=== PATIENT | female | born 1930 | race Caucasian/White ===

== ENCOUNTER → 2016-07-07 | Outpatient (CLI) | payer MEDICARE, BC | END | disposition home or self-care (01) | LOC: LABWHC1 12:11 | PROVIDERS: ATTEND Family Medicine | DX: E03.9 Hypothyroidism, unspecified (principal); E55.9 Vitamin D deficiency, unspecified | CPT/HCPCS: 36415; 82306; 84439; 84443 ==

== ENCOUNTER → 2016-07-07 | Outpatient (CLI) | payer MEDICARE, BC ==
[2016-07-07 11:37] LABS: EKG EKG PERFORMED
[2016-07-07 12:34] LABS: Appearance,Urine Clear (Clear); Bilirubin,Urine Negative (Negative); Glucose,Urine (UA) Negative (Negative); Ketones,Urine Negative (Negative); Leukocyte Esterase,Urine Negative (Negative); Nitrite,Urine Negative (Negative); PH, Urine 6.5 (5.0-8.0); Protein,Urine Negative (Negative); UA Billing (MACRO vs. MICRO) CHEM; Urobilinogen,Urine <2.0 mg/dL (<2.0)
[2016-07-07 12:39] LABS: Aty Lym Flag Slight; CH 33.5; CHCM 34.9; HCT 39.1 % (34.0-46.0); HDW 2.54; HGB 13.4 gm/dL (11.4-16.0); MCHC 34.3 g/dL (31.0-37.0); MCV 96.2 fL (80.0-100.0); Mean Platelet Volume 7.1; RBC 4.06 m/uL (3.80-5.40); RDW 12.4 % (11.5-15.5); WBC 3.6 k/uL (3.8-10.6); WBC (Perox) 3.91
[2016-07-07 12:46] LABS: Partial Thromboplastin Time 24.8 sec (22.0-30.0); Prothrombin Time 10.5 sec (9.0-12.0)
[2016-07-07 13:08] LABS: ALT 23 U/L (9-52); AST 21 U/L (14-36); Alkaline Phosphatase 95 U/L (38-126); Anion Gap 8 mmol/L; Blood Urea Nitrogen 17 mg/dL (7-17); Calcium 9.6 mg/dL (8.4-10.2); Carbon Dioxide 25 mmol/L (22-30); Chloride 98 mmol/L (98-107); Glucose 93 mg/dL (74-99); Non-African American GFR(MDRD) >60 (>60 ml/min/1.73 sqM); Potassium 4.9 mmol/L (3.5-5.1); Sodium 131 mmol/L (137-145); Total Protein 6.5 g/dL (6.3-8.2)
[2016-07-07 13:35] LABS: Add Differential Manual Differential
[2016-07-07 13:38] LABS: Large Platelets Present; Manual Review Performed; Nucleated Red Blood Cells 0 /100 WBC (0-0); Total Cells Counted 100; Toxic Vacuolation Present
== END ==
LOC: LABPAT 11:04
PROVIDERS: ATTEND Orthopaedic Surgery
DX: Z01.810 Encounter for preprocedural cardiovascular examination (principal); Z01.812 Encounter for preprocedural laboratory examination; E03.9 Hypothyroidism, unspecified; E55.9 Vitamin D deficiency, unspecified
CPT/HCPCS: 36415; 80053; 81003; 82306; 84439; 84443; 85025; 85610; 85730; 87070; 93005

== ENCOUNTER 2016-07-15 08:29 | Inpatient (IN) | payer MEDICARE, BC ==
[2016-07-09 10:57] VITALS: BMI 26.5
[~2016-07-15 08:29] MED LIST: ACETAMINOPHEN TAB 500 MG TAB PO ONE; DEXAMETHASONE SOD PHOSPHATE 10 MG/ML 1 ML VIAL IV ONE; FAMOTIDINE 20 MG/2 ML VIAL IV PRN; HYDROmorphone 1 MG/ML 1 ML SYRINGE IVP PRN; LIDOCAINE 1% 20 ML VIAL (10MG/ML) FOR IV START INTRADERMA PRN; MELOXICAM 7.5 MG TAB PO ONE; MIDAZOLAM 2 MG/2 ML VIAL IV PRN; ONDANSETRON 4 MG/2 ML VIAL IVP ONE; TRANEXAMIC ACID 1,000 MG in SODIUM CHLORIDE 0.9% 100 ML IVPB ONE; ceFAZolin 2 GM in SODIUM CHLORIDE 0.9% 100 ML IVPB ONE
[2016-07-15] MEDS: LACTATED RINGERS 1,000 ML IV SCH (12:25)
[2016-07-15] MEDS ORDERED: ROPIVACAINE 1,100 MG, SODIUM CHLORIDE 0.9% 330 ML MISCELLANE PRN ×2 (12:39)
--- NOTE | 2016-07-15 12:41 | P.ONQ ---
Anesthesiology Proc Note - PNB - Peripheral Nerve Block Performed Right Adductor Canal Time Out Performed: Yes Procedure Start Time: 12:40 Procedure Stop Time: 12:45 Indication: Acute Post-Operative Pain, Analgesia Sedation Type: Sedate with meaningful contact maintained Preparation: Sterile Prep Position: Supine Catheter: Indwelling Needle Types: On-Q, Tojaneen Needle Size: 100mm (4") Needle Gauge: 18 Technique: Ultrasound Injectate: 0.5% Ropivacaine (see comment for volume) Blood Aspirated: No Pain Paresthesia on Injection Noted: No Resistance on Injection: Normal Events: Uneventful and Well Tolerated
[2016-07-15] MEDS ORDERED: LIDOCAINE 1% INJ 10MG/ML (20 ML MDV) ONE (15:15)
[2016-07-15] MEDS ORDERED: SODIUM CHLORIDE 0.9% 100 ML BAG ONE (15:15)
[2016-07-15] MEDS ORDERED: MIDAZOLAM 2 MG/2 ML VIAL ONE (15:15)
[2016-07-15] MEDS ORDERED: ePHEDrine 50 MG/ML 1 ML AMP ONE (15:15)
[2016-07-15] MEDS ORDERED: TRANEXAMIC ACID 1,000 MG/10 ML VIAL ONE (15:15)
[2016-07-15] MEDS ORDERED: PROPOFOL 10 MG/ML 20 ML VIAL IV ONE (15:15)
[2016-07-15] MEDS ORDERED: ceFAZolin 3,000 MG in SODIUM CHLORIDE 0.9% IRRIGATIO 3,000 ML IRRIGATION ONE (15:20)
[2016-07-15] MEDS: ROPIVACAINE 246.25 MG, EPINEPHrine 0.5 MG, KETOROLAC 30 MG, cloNIDine HCL/PF 80 MCG, WA... MISCELLANE ONE ×10 (15:52→16:01)
--- NOTE | 2016-07-15 16:34 | P.OP ---
Date of Procedure: 07/15/16 Preoperative Diagnosis: Severe osteoarthritis right knee Postoperative Diagnosis: Severe osteoarthritis right knee Procedure(s) Performed: Right total knee arthroplasty Implants: Power and Nephew Oxinium femoral component size 4, right Power & Nephew Adriane II right nonporous tibial baseplate size 5 Power & Nephew size 9 mm Legion XLPE dished articular insert, size 4-5 Power [employer] Nephew Adriane II resurfacing patellar component, 29 mm All components were cemented using Medardo bone cement.. The articulation is ceramic on polyethylene. Anesthesia: spinal Surgeon: Ortega Brice Physical Therapy Aides Teacher #1: Emily Moeller Physical Therapy Aides Teacher #2: Dacia Chester Estimated Blood Loss (ml): 50 Pathology: other (Bone and cartilage) Condition: stable Disposition: PACU Indications for Procedure: After failure of conservative treatment we discussed the surgical and nonsurgical treatment options at length. Patient wishes to proceed with a total knee arthroplasty. Complications specific to this procedure were discussed at length, including but not limited to infection, bleeding, stiffness , and nerve injury. Patient is aware of all these complications and informed consent was obtained Operative Findings: The operative findings are consistent with severe osteoarthritis of the right knee. Description of Procedure: Patient was seen in the preoperative area consent was reviewed and operative site was marked with a skin marker. An adductor canal pain catheter was placed by anesthesia in the preoperative area. Patient was then brought to the operating room and given preoperative antibiotics intravenously. A spinal anesthetic was administered by the anesthesia department. A Grajeda catheter was then placed by the nursing staff. A tourniquet was placed on the upper thigh and the lower extremity was prepped and draped in usual sterile fashion. A gram of transexamic acid was given. A universal timeout was then performed which confirmed the patient's name, surgical site, ALLERGIES, and consent. The lower extremity was then exsanguinated and tourniquet was inflated to 250 mmHg. A standard and anterior midline approach to the knee was performed. The skin and subcutaneous tissue was dissected down to the patellar tendon. A medial parapatellar arthrotomy was then performed. The knee was then extended, the patellar was everted, and the knee was again flexed. Anterior horns of both menisci were excised, and a release was performed to the posterior medial aspect of the knee. On gross visual inspection, there was complete loss of articular cartilage in the medial and patellofemoral joint spaces. There was also significant cartilage damage in the lateral compartment. There were multiple periarticular osteophytes which were then removed with a Ronguer. The femoral canal was then opened with the appropriate drill, and the intramedullary femoral cutting guide was then placed and set for 4 of valgus. The distal femoral cutting block was then pinned in place, and the distal femur was then cut. The cutting block was then removed and the cut was checked for flatness. Next, the sizing guide was then placed and set for 3 external rotation based off of the epicondylar axis and Whitesides line. After the femur was sized, the appropriate 4-in-1 cutting block was then pinned in place. The anterior condyles were cut without notching. The posterior and chamfer cuts were performed while protecting the collateral ligaments. The cutting block was then removed, and the femoral canal was plugged with autologous bone. Attention was then directed to the tibia. The remaining ACL was removed with a Ronguer, and the tibia was then gently subluxed forward with a large bent knee retractor. Any remaining menisci was excised. The posterior lateral corner was cauterized in order to cauterize the lateral geniculate artery. The extra medullary tibial cutting guide was then placed, set for the appropriate rotation , slope, and depth of resection. The proximal tibia cutting guide was then pinned in place. Proximal tibia was then cut and sized. Next trials were then placed with the appropriate-sized insert. The knee was able to fully extend and flex to 130 and was stable throughout all range of motion. The knee was then extended, patella everted. Patella was then measured, and then using an osteotomy guide, the patella was cut at the appropriate level. The patella was then measured and drilled and the patella trial was then placed. The knee was then taken through range of motion with the patella trial and the patella tracked normally. The knee was then extended patella trial was then removed and the patella was everted. Knee was then flexed and lug holes were drilled through the femoral trial and the femoral trial was then removed. The tibial was then exposed, and the tibial broach guide was then pinned in place after it was set for the appropriate rotation to allow for the most coverage without overhang. The tibia was then reamed and broached. The cut surfaces of bone were then irrigated with pulsatile lavage. The posterior structures were injected with the ropivacaine solution. The knee was also irrigated with Irrisept solution. The components were then opened, the cement was mixed, and the components were then cemented in place. The cement was allowed to harden with the knee in full extension. While the cement was hardening, the remaining soft tissues were then injected with a ropivacaine solution, which consisted of 246.25 mg of ropivacaine, 0.5 mg of epinephrine, 30 mg of Toradol, 80 g of clonidine, and 48.45 mL of sterile water, for a total of 100 mL of fluid injected. After the cemented hardened. The tourniquet was released, and hemostasis was obtained. A second gram of transexamic acid was given. The knee was again irrigated. The knee was again taken through range of motion and found to be stable throughout all range of motion of 0-130 , and the patella tracked normally. The fascia was then closed with #2 strata fix suture. The subcutaneous tissue was closed with 3-0 Vicryl and 3-0 strata fix. Dermabond tape was used for the skin and placed with the knee in flexion. The patient was placed in a sterile dressing. Patient was then transferred to recovery room in stable condition. The customer care assistant MISA Linares was required due the complexity surgery and the need for a skilled surgical corsetier. She assisted in positioning, draping , retraction, and closure of the wound.
[2016-07-15] MEDS ORDERED: LACTATED RINGERS 1,000 ML IV ONE (16:54)
[2016-07-15] MEDS ORDERED: NALOXONE 0.4 MG/ML 1 ML VIAL IV PRN (16:55)
[2016-07-15] MEDS ORDERED: DIAZEPAM 5 MG TAB PO PRN ×2 (16:55)
[2016-07-15] MEDS ORDERED: hydrOXYzine PAMOATE 25 MG CAP PO PRN (16:55)
[2016-07-15] MEDS ORDERED: ONDANSETRON 4 MG/2 ML VIAL IVP PRN (16:55)
[2016-07-15] MEDS ORDERED: HYDROmorphone 1 MG/ML 1 ML SYRINGE IVP PRN ×3 (16:55)
[2016-07-15] MEDS ORDERED: HYDROcodone/APAP 5-325MG 1 EACH TAB PO PRN (16:55)
[2016-07-15] MEDS ORDERED: ROPIVACAINE 5 MG/ML 30 ML VIAL MISCELLANE ONE (17:04)
--- NOTE | 2016-07-15 17:30 | XR ---
EXAMINATION TYPE: XR knee limited RT DATE OF EXAM: 07/15/2016 5:15 PM COMPARISON: NONE HISTORY: Postoperative TECHNIQUE: AP and lateral views FINDINGS: TKR appears anatomic. Postsurgical changes appreciated, but no unexpected radiopaque foreig n bodies are noted. Bones and joints and soft tissues are otherwise unremarkable. IMPRESSION: Postoperative right TKR.
[2016-07-15] MEDS: ASPIRIN 325 MG TAB PO SCH (21:04)
[2016-07-16] MEDS: ceFAZolin 2 GM in SODIUM CHLORIDE 0.9% 100 ML IVPB SCH ×2 (01:15→08:06)
[2016-07-16] MEDS: LACTATED RINGERS 1,000 ML IV SCH (07:47)
[2016-07-16] MEDS: SODIUM CHLORIDE 0.9% 1,000 ML IV SCH ×2 (07:47→16:32)
[2016-07-16 08:02] LABS: Basophils % (A) 0 %; CH 33.1; CHCM 35.2; Eosinophils % (A) 0 %; HCT 31.4 % (34.0-46.0); HDW 2.58; HGB 11.2 gm/dL (11.4-16.0); Luc # (Auto) 0.32; Luc % (Auto) 3; Lymphocytes # (A) 0.9 k/uL (1.0-4.8); Lymphocytes % (A) 8 %; MCH 33.7 pg (25.0-35.0); MCHC 35.7 g/dL (31.0-37.0); MCV 94.3 fL (80.0-100.0); Mean Platelet Volume 7.2; Monocytes # (A) 0.8 k/uL (0-1.0); Monocytes % (A) 7 %; Neutrophils # (A) 9.4 k/uL (1.3-7.7); Neutrophils % (A) 82 %; RBC 3.33 m/uL (3.80-5.40); RDW 12.4 % (11.5-15.5); WBC 11.4 k/uL (3.8-10.6); WBC (Perox) 11.57
[2016-07-16] MEDS: MELOXICAM 7.5 MG TAB PO SCH (08:06)
[2016-07-16] MEDS: ASPIRIN 325 MG TAB PO SCH ×2 (08:06→22:25)
--- NOTE | 2016-07-16 08:52 | P.PN ---
Subjective Principal diagnosis: Status post right total knee arthroplasty This is a pleasant 85-year-old female who is status post right total knee arthroplasty. Today's postoperative day #1. The patient is seen and evaluated at bedside with Dr. Ortega Brice. Her pain is under fair control. She has no new complaints this time. Objective - Vital Signs Vital signs: Vital Signs Temp 97.6 F 07/16/16 07:55 Pulse 73 07/16/16 07:55 Resp 16 07/16/16 07:55 BP 112/65 07/16/16 07:55 Pulse Ox 93 L 07/16/16 07:55 Intake & Output 07/15/16 07/16/16 07/16/16 18:59 06:59 18:59 Intake Total 801 575 180 Output Total 50 Balance 751 575 180 Weight 76.884 kg Intake: IV 801 Intake, IV Titration 575 Amount Sodium Chloride 0.9% 1, 575 000 ml @ 50 mls/hr IV . Q20H [facility] Rx#:[id number] Oral 180 Output: Estimated Blood Loss 50 - Exam The patient does not appear in acute distress. Alert and orientated 3. Dressing is clean dry and intact. Incision appears fine with no erythema or active drainage. Calf is soft and nontender. Good foot and ankle motion without difficulty. Sensation and circulatory status is intact. - Labs CBC & Chem 7: 07/16/16 06:48 Labs: Abnormal Lab Results - Last 24 Hours (Table) 07/16/16 Range/Units 06:48 WBC 11.4 H (3.8-10.6) k/uL RBC 3.33 L (3.80-5.40) m/uL Hgb 11.2 L (11.4-16.0) gm/dL Hct 31.4 L (34.0-46.0) % Neutrophils # 9.4 H (1.3-7.7) k/uL Lymphocytes # 0.9 L (1.0-4.8) k/uL Assessment and Plan (1) Primary osteoarthritis of right knee Status: Acute (2) Status post right knee replacement Status: Acute Plan: 1. Continue with routine postoperative care. 2. Anticoagulation with aspirin. 3. Physical therapy and CPM today. 4. Appreciate input from medicine. 5. Anticipate discharge to rehab likely on Thursday
--- NOTE | 2016-07-16 09:24 | P.PN ---
Subjective pod 1; on q pump in place; catheter system intact Objective - Vital Signs Vital signs: Vital Signs Temp 97.6 F 07/16/16 07:55 Pulse 73 07/16/16 07:55 Resp 16 07/16/16 07:55 BP 112/65 07/16/16 07:55 Pulse Ox 93 L 07/16/16 07:55 Intake & Output 07/15/16 07/16/16 07/16/16 18:59 06:59 18:59 Intake Total 801 575 180 Output Total 50 Balance 751 575 180 Weight 76.884 kg Intake: IV 801 Intake, IV Titration 575 Amount Sodium Chloride 0.9% 1, 575 000 ml @ 50 mls/hr IV . Q20H [facility] Rx#:[id number] Oral 180 Output: Estimated Blood Loss 50 - Labs CBC & Chem 7: 07/16/16 06:48 Labs: Abnormal Lab Results - Last 24 Hours (Table) 07/16/16 Range/Units 06:48 WBC 11.4 H (3.8-10.6) k/uL RBC 3.33 L (3.80-5.40) m/uL Hgb 11.2 L (11.4-16.0) gm/dL Hct 31.4 L (34.0-46.0) % Neutrophils # 9.4 H (1.3-7.7) k/uL Lymphocytes # 0.9 L (1.0-4.8) k/uL
[2016-07-16] MEDS: ARTIFICIAL TEARS-HYPROMELLOSE DROPS 15 ML BTL BOTH EYES SCH ×3 (13:13→22:25)
[2016-07-16] MEDS: HYDROcodone/APAP 5-325MG 1 EACH TAB PO PRN ×2 (13:14→18:14)
--- NOTE | 2016-07-16 14:54 | CONS ---
DATE OF CONSULTATION: 07/16/2016 ADDENDUM: I will cut back on the patient dose of Synthroid to 37.5 mcg as the patient's recent TSH was quite on the lower side 0.727 and that may explain tremors the patient is having. Additionally the patient takes primidone at home just started by her family doctor. Continue with the same. This was discussed with the patient's daughter and a prescription was sent to her pharmacy.
--- NOTE | 2016-07-16 14:56 | CONS ---
DATE OF CONSULTATION: 07/16/2016 REASON FOR CONSULTATION: Medical management requested by Dr. Brice. CONSULTATION: This is a very pleasant 86-year-old patient of Dr. John Higgins. Patient's chronic stable medical conditions include hypertension, hypothyroid, essential tremor, macular degeneration. Patient has undergone a right total knee arthroplasty. Currently sitting up in a chair. Some pain is present. No nausea, vomiting or dizziness. Did go for physical therapy. Daughter at the bedside. Denies any cardiac history. REVIEW OF SYSTEMS: CONSTITUTIONAL: None. HEENT: Decreased vision. RESPIRATORY: None. CARDIOVASCULAR: None. GASTROINTESTINAL: None. GENITOURINARY: Some urinary incontinence. DERMATOLOGICAL: None. HEMATOLOGICAL: None. LYMPHATICS: None. PSYCHIATRY: None. NEUROLOGICAL: Pain in the joints, especially in the knees. MUSCULOSKELETAL: Tremors. PAST MEDICAL HISTORY: Hypertension, hypothyroid, breast cancer, hepatitis type-unknown, macular degeneration, osteoarthritis, tremors. PAST SURGICAL HISTORY: Breast surgery, cholecystectomy, hysterectomy, right radical mastectomy, bilateral cataracts. SOCIAL HISTORY: No smoking. Alcohol rarely. Patient is a . Family history of breast cancer. HOME MEDICATIONS: 1. Ocuvite with lutein 1 tablet p.o. daily. 2. Saline eyedrops one drop to both eyes t.i.d. 3. Zestril 10 mg q.h.s. 4. Synthroid 50 mcg a day. 5. Vitamin D3 one thousand units p.o. daily. 6. Tenormin 50 mg p.o. daily. 7. Senokot S 2 tablets p.o. daily, 8. [place] 5 one to two tablets q.6 p.r.n. 9. Aspirin 325 mg p.o. b.i.d. Allergies to LATEX. On examination, temperature 97.6, pulse 93, respirations 16, blood pressure 102/65, pulse ox 93% on room air. GENERAL APPEARANCE: Average build, sitting up in a chair, not in distress. EYES: Pupils equal. Conjunctivae normal. HEENT: Oral cavity normal. NECK: JVD not raised. Mass not palpable. Respiratory effort normal. LUNGS: Fair air entry. CARDIOVASCULAR: First and second sounds, no edema. ABDOMEN: Soft, nontender. Liver and spleen not palpable. LYMPHATIC: No lymph nodes palpable in the neck or axillae. PSYCHIATRY: Alert and oriented x3. Mood and affect normal. NEUROLOGICAL: Pupils equal. Cranial nerves grossly intact. Power and sensation grossly intact. MUSCULOSKELETAL: Right knee in a dressing, evidence of osteoarthritis in left knee. NEUROLOGICAL: Tremors are present, fine. INVESTIGATIONS: White count 11.4, hemoglobin 11.2. ASSESSMENT: 1. Right total knee arthroplasty. 2. Essential hypertension. 3. Hypothyroid. 4. Macular degeneration. 5. Essential tremors. 6. Primary osteoarthritis in multiple joints including the left knee. PLAN: Will continue current medication and treatment plan for DVT prophylaxis. Patient is on aspirin per Dr. Brice. Care was discussed with the patient and daughter, questions were answered. Other home medication will be resumed. Thank you, Dr. Brice.
[2016-07-16] MEDS: ATENOLOL 50 MG TAB PO SCH (15:30)
[2016-07-16] MEDS: LISINOPRIL 10 MG TAB PO SCH (22:25)
[2016-07-16] MEDS: PRIMIDONE 50 MG TAB PO SCH (22:36)
[2016-07-17] MEDS: LACTATED RINGERS 1,000 ML IV SCH (05:33)
[2016-07-17] MEDS: LEVOTHYROXINE 75 MCG TAB PO SCH (05:34)
[2016-07-17] MEDS: HYDROcodone/APAP 5-325MG 1 EACH TAB PO PRN ×4 (07:04→20:33)
[2016-07-17] MEDS: ARTIFICIAL TEARS-HYPROMELLOSE DROPS 15 ML BTL BOTH EYES SCH ×3 (07:05→20:34)
[2016-07-17] MEDS: MELOXICAM 7.5 MG TAB PO SCH (07:06)
[2016-07-17] MEDS: ASPIRIN 325 MG TAB PO SCH ×2 (07:06→20:32)
[2016-07-17] MEDS: ATENOLOL 50 MG TAB PO SCH (07:11)
--- NOTE | 2016-07-17 08:23 | P.PN ---
Subjective Principal diagnosis: Status post total right knee arthroplasty This is a well-appearing 85-year-old female status post total right knee arthroplasty. This is postoperative day #2. Patient's pain is under good control. Patient complains of mild calf tenderness but patient states the pain feels like muscle soreness. Otherwise patient has no new complaints. Objective - Vital Signs Vital signs: Vital Signs Temp 98.0 F 07/17/16 07:15 Pulse 66 07/17/16 07:15 Resp 16 07/17/16 07:15 BP 134/79 07/17/16 07:15 Pulse Ox 94 L 07/17/16 07:15 Intake & Output 07/16/16 07/17/16 07/17/16 18:59 06:59 18:59 Intake Total 900 200 Balance 900 200 Intake: IV 300 Sodium Chloride 0.9% 1, 300 000 ml @ 50 mls/hr IV . Q20H [facility] Rx#:[id number] Oral 600 200 Other: Voiding Method Toilet # Voids 1 1 - Exam The patient does not appear in acute distress. Alert and oriented 3. Calf is soft and mildly tender to palpation proximal medial aspect of the left calf. Patient has good pedal pulses and capillary refill is normal at less than 2 seconds. Negative Homans sign. Sensation and circulatory status are intact. Vital signs are stable. Patient has good foot and ankle range of motion. Incision is clean, dry, intact with no drainage present on the dressing. - Labs CBC & Chem 7: 07/16/16 06:48 Assessment and Plan (1) Status post right knee replacement Status: Acute Plan: #1 Continue with routine postoperative care. #2 Anticoagulation with aspirin. #3 Physical therapy and CPM today. #4 Appreciate input from medicine. #5 Anticipated discharge to rehab likely tomorrow.
--- NOTE | 2016-07-17 08:35 | P.PN ---
Progress Note - Text The patient is status post right adductor canal catheter placement. The catheter was placed for postoperative pain control, status post total right arthroplasty. Ropivacaine 0.2% is infusing at 8 mLs per hour. The patient has no complaints of right lower extremity numbness or weakness. Patient's VAS score is 1-2-10. Assessment: Patient's adductor canal catheter is in place and working appropriately. Plan: continue infusion and adjust it as needed.
[2016-07-17] MEDS: SODIUM CHLORIDE 0.9% 1,000 ML IV SCH (09:25)
[2016-07-17] MEDS: LISINOPRIL 10 MG TAB PO SCH (20:32)
[2016-07-17] MEDS: PRIMIDONE 50 MG TAB PO SCH (20:33)
--- NOTE | 2016-07-17 21:04 | PN ---
DATE OF SERVICE: 07/17/2016 PRESENTING COMPLAINT: Right knee surgery. INTERVAL HISTORY: Patient is status post right total knee arthroplasty. Dose of Synthroid was cut back, felt to be overreplaced. Tolerating a diet. Tremors are better. Sitting up in a chair. Review of systems done for constitutional, cardiovascular, GI, pulmonary; relevant findings as above. Current medications are reviewed. On examination, temperature 97.8, pulse 56, respiration 16, blood pressure 130/79, pulse ox 94%. GENERAL APPEARANCE: Sitting up in a chair. Comfortable. EYES: Pupils equal. Conjunctivae normal. NECK: JVD not raised. Mass not palpable. RESPIRATORY: Effort normal. Lungs are clear. CARDIOVASCULAR: First and second sounds normal. No edema. ABDOMEN: Soft, nontender. Liver and through not palpable. PSYCHIATRY: Alert and oriented x3. Mood and affect normal. NEUROLOGICAL: Tremors present. INVESTIGATIONS: No blood work from today. ASSESSMENT: 1. Right total knee arthroplasty. 2. Essential hypertension. 3. Hypothyroidism. 4. Macular degeneration. 5. Essential tremor. 6. Primary osteoarthritis of multiple joints, including the left knee. PLAN: Care was discussed with the patient. Continue current medication and treatment plan.
[2016-07-18 05:01] VITALS: RESP 16
[2016-07-18] MEDS: SODIUM CHLORIDE 0.9% 1,000 ML IV SCH (06:04)
[2016-07-18] MEDS: LACTATED RINGERS 1,000 ML IV SCH (06:05)
[2016-07-18] MEDS: LEVOTHYROXINE 75 MCG TAB PO SCH (06:25)
[2016-07-18] MEDS: HYDROcodone/APAP 5-325MG 1 EACH TAB PO PRN ×2 (06:26→12:26)
[2016-07-18 07:01] VITALS: BP 124/76; PULSE 66; TEMP 97.8
[2016-07-18 07:03] LABS: Basophils % (A) 1 %; CH 33.8; CHCM 35.5; Eosinophils # (A) 0.3 k/uL (0-0.7); Eosinophils % (A) 6 %; HDW 2.68; HGB 10.4 gm/dL (11.4-16.0); Luc # (Auto) 0.17; Luc % (Auto) 4; Lymphocytes % (A) 25 %; MCH 34.4 pg (25.0-35.0); MCV 95.8 fL (80.0-100.0); Mean Platelet Volume 6.8; Monocytes # (A) 0.3 k/uL (0-1.0); Monocytes % (A) 6 %; Neutrophils # (A) 2.4 k/uL (1.3-7.7); Neutrophils % (A) 57 %; RBC 3.02 m/uL (3.80-5.40); RDW 12.5 % (11.5-15.5); WBC 4.2 k/uL (3.8-10.6); WBC (Perox) 4.73
[2016-07-18] MEDS: ATENOLOL 50 MG TAB PO SCH (08:05)
[2016-07-18] MEDS: MELOXICAM 7.5 MG TAB PO SCH (08:05)
[2016-07-18] MEDS: ASPIRIN 325 MG TAB PO SCH (08:05)
[2016-07-18] MEDS: ARTIFICIAL TEARS-HYPROMELLOSE DROPS 15 ML BTL BOTH EYES SCH (08:05)
--- NOTE | 2016-07-18 09:03 | P.DS ---
Providers Date of admission: 07/15/16 11:32 Expected date of discharge: 07/18/16 Attending physician: Ortega Brice Consults: 07/15/16 16:55 Consult Physician Routine Consulting Provider: Eloy Lira Consult Reason/Comments: medical management Do you want consulting provider notified?: Yes - Discharge Diagnosis(es) (1) Status post right knee replacement Current Visit: Yes Status: Acute (2) Osteoarthritis of right knee Current Visit: Yes Status: Acute Hospital Course: This is a 85-year-old female with known history of degenerative arthritis of the right knee. The patient presents for evaluation. After discussion and consideration patient elects to proceed with total knee arthroplasty. The patient is seen preoperatively by Dr. Brice and cleared for surgery. Patient is admitted to [facility] on 07/15/2016 for total knee arthroplasty. The procedures performed without complication or sequelae. The patient is doing well postoperatively. Labs and vital signs are stable on day of discharge. On day of discharge patient's knee incision is healing well. There is minimal erythema. There is no drainage noted at this time. There is minimal soft tissue swelling to the knee. Calf is soft and nontender. Patient has full foot and ankle motion without difficulty or pain. Neurovascular status to the right lower extremity is intact. Patient is discharged to rehab in good condition. Please see med rec for accurate list of home medications. Plan - Discharge Summary New Discharge Prescriptions: Aspirin 325 mg PO BID #60 tab Hydrocodone/Acetaminophen [[place] 5-325] 1 - 2 each PO Q6HR PRN #90 tab PRN Reason: Pain Levothyroxine Sodium [Synthroid] 37.5 mcg PO DAILY@0630 #30 tab Sennosides-Docusate Sodium [Senokot-S] 2 tab PO DAILY #60 tablet Discharge Medication List Atenolol [Tenormin] 50 mg PO DAILY 07/09/16 [History] Cholecalciferol [Vitamin D3] 1,000 unit PO DAILY 07/09/16 [History] Lisinopril [Zestril] 10 mg PO HS 07/09/16 [History] Saline Eye Drops 1 drop BOTH EYES TID 07/09/16 [History] Vit A,C & E/Lutein/Minerals [Ocuvite with Lutein Tablet] 1 tab PO DAILY [History] Aspirin 325 mg PO BID #60 tab 07/16/16 [Rx] Hydrocodone/Acetaminophen [[place] 5-325] 1 - 2 each PO Q6HR PRN #90 tab 07/16/16 [Rx] Levothyroxine Sodium [Synthroid] 37.5 mcg PO DAILY@0630 #30 tab 07/16/16 [Rx] Primidone [Mysoline] 50 mg PO HS 07/16/16 [History] Sennosides-Docusate Sodium [Senokot-S] 2 tab PO DAILY #60 tablet 07/16/16 [Rx] Follow up Appointment(s)/Referral(s): Ortega Brice DO [Doctor of Osteopathic Medicine] - 2 Weeks Ambulatory/Diagnostic Orders: Continuous Passive Motion (CPM) Machine [[email or web address].AMB1] Location: Determined By Patient Activity/Diet/Wound Care/Special Instructions: Weightbearing as tolerated with a walker CPM daily Daily dressing changes, keep incision clean and dry [facility] with questions or concerns [phone] Discharge Disposition: TRANSFER TO SNF/ECF
--- NOTE | 2016-07-18 13:10 | XR ---
EXAMINATION TYPE: XR chest 1V portable DATE OF EXAM: 07/18/2016 12:55 PM HISTORY: ecf placement. REFERENCE: NONE. FINDINGS: There is some scarring or atelectasis at the left lung base. Lungs are otherwise clear. Ple ural spaces are clear. Heart size is upper limits of normal. IMPRESSION: NO ACTIVE INTRATHORACIC DISEASE.
--- NOTE | 2016-07-18 22:51 | PN ---
DATE OF SERVICE: 07/18/2016 PRESENTING COMPLAINT: Right knee surgery. INTERVAL HISTORY: Patient is status post right total knee arthroplasty. Doing well, sitting up, tolerating a diet. Tremors are better, she states. Review of systems done for constitutional, cardiovascular, GI, pulmonary; relevant findings as above. Current medications are reviewed. On examination, temperature 97.8, pulse 66, respirations 18, blood pressure 120/76, pulse ox 92% on room air. GENERAL APPEARANCE: Sitting up on a chair, more comfortable. EYES: Pupils equal. Conjunctivae normal. NECK: JVD not raised. Mass not palpable. RESPIRATORY: Effort normal. Lungs are clear. CARDIOVASCULAR: First and second sounds normal. No edema. ABDOMEN: Soft, nontender. Liver and spleen not palpable. PSYCHIATRY: Alert and oriented x3. Mood and affect normal. NEUROLOGICAL: Mild tremors present. INVESTIGATIONS: Hemoglobin 10.4. ASSESSMENT: 1. Right total knee arthroplasty. 2. Essential hypertension. 3. Hypothyroidism with mild over replacement of the Synthroid that has been corrected. 4. Macular degeneration. 5. Essential tremor. 6. Primary osteoarthritis of multiple joints including left knee. PLAN: Continue the current medication and treatment plan. Will follow.
== END 2016-07-18 14:44 | DRG 470 ==
LOC: 2ORMAIN 11:32 → 3SUR 16:50
PROVIDERS: ADMIT Orthopaedic Surgery; ATTEND Orthopaedic Surgery
PROC: 0SRC0J9 Replacement of Right Knee Joint with Synthetic Substitute, Cemented, Open Approach (ICD-10-PCS; principal; 2016-07-15 14:00)
DX: M17.11 Unilateral primary osteoarthritis, right knee (principal); I10 Essential (primary) hypertension; E78.5 Hyperlipidemia, unspecified; E03.9 Hypothyroidism, unspecified; G25.0 Essential tremor; H35.30 Unspecified macular degeneration; Z79.82 Long term (current) use of aspirin; Z85.3 Personal history of malignant neoplasm of breast; Z79.899 Other long term (current) drug therapy; Z91.040 Latex allergy status
CPT/HCPCS: 71010; 85025; 88300

== ENCOUNTER 2018-07-04 20:29 | Emergency (ER) | payer MEDICARE, BC ==
[2018-07-04] MEDS ORDERED: ASPIRIN 81 MG PO STA (21:26)
[2018-07-04] MEDS ORDERED: MORPHINE SULFATE 4 MG/ML SYRINGE IV STA (21:26)
--- NOTE | 2018-07-04 21:32 | ED ---
Chest Pain HPI - General Chief Complaint: Chest Pain Stated Complaint: Rib pain/injury Time Seen by Provider: 07/04/18 21:02 Source: patient, family Mode of arrival: ambulatory Limitations: no limitations - History of Present Illness Initial Comments: This patient is an 87-year-old woman who presents to be evaluated for pain in the sternal and right chest area. She states the pain came on yesterday in the early afternoon. She had been cleaning windows. She was reaching above her and leaning forward onto a window that was open. Window struck her chest and cause a little bit of pain at the time which she states that it has become worse over the course of this afternoon and evening. Patient states that the pain is an aching, constant. It is a little worse with movement, or taking a deep breath. She states that she tried taking an old Vicodin and it seemed to help a little bit though the pain has not completely resolved. Patient denies dyspnea, nausea or vomiting, diaphoresis, palpitations or syncope. MD Complaint: chest pain Onset/Timin -: hour(s) Onset: other (While cleaning when) Pain Location: substernal, right chest Pain Radiation: none Severity: moderate Quality: aching Consistency: constant Improves With: movement Worsens With: nothing Treatments Prior to Arrival: other (Vicodin) - Related Data Home Medications Medication Instructions Recorded Confirmed Vits A,C,E/Lutein/Minerals 1 tab PO BID 07/09/16 07/04/18 [Ocuvite with Lutein Tablet] Acetaminophen [Tylenol Extra 500 mg PO DAILY PRN 07/02/18 07/04/18 Strength] Atenolol [Tenormin] 50 mg PO HS 07/02/18 07/04/18 Levothyroxine Sodium [Synthroid] 75 mcg PO DAILY 07/02/18 07/04/18 Lisinopril [Zestril] 10 mg PO HS 07/02/18 07/04/18 Primidone [Mysoline] 50 mg PO HS 07/04/18 07/04/18 Vicodin (Mg Unknown) 1 tab PO DAILY 07/04/18 07/04/18 Previous Rx's Medication Instructions Recorded Hydrocodone/Acetaminophen [Shaniko 1 each PO Q6HR PRN #20 tab 07/04/18 5-325] Allergies Allergy/AdvReac Type Severity Reaction Status Date / Time latex Allergy Rash/Hives Verified 07/04/18 21:30 Review of Systems ROS Statement: Those systems with pertinent positive or pertinent negative responses have been documented in the HPI. ROS Other: All systems not noted in ROS Statement are negative. Constitutional: Denies: fever, chills Respiratory: Denies: cough, dyspnea, hemoptysis Cardiovascular: Reports: as per HPI, chest pain. Denies: palpitations, orthopnea, edema, syncope Gastrointestinal: Denies: abdominal pain, nausea, vomiting Genitourinary: Denies: dysuria Musculoskeletal: Denies: back pain Skin: Denies: rash Neurological: Denies: headache, weakness, numbness EKG Findings - EKG Results: EKG: interpreted by ERMD, sinus rhythm (Rate 75 bpm), normal QRS - Blocks, [place], Hypertrophy, ST Abn: QRS axis and voltage: left axis deviation (-30 to -90) Repolarization changes or abnormalities: nonspecific abnormality, ST segment, and/or T wave Past Medical History Past Medical History: Cancer, Hyperlipidemia, Hypertension, Osteoarthritis (OA), Thyroid Disorder Additional Past Medical History / Comment(s): BREAST CANCER WITH SURGERY., HX HEPATITIS., MILD BACK PAIN, GLAUCOMA- POOR VISION., STATES HAND & ARM TREMORS, ARTHRITIS LEFT KNEE., LOOSES BALANCE -UNSTEADY . , STATES HX FALLS .,STATES DIZZINESS IF SHE GETS UP QUICKLY., HX OF UTI'S- STATES FINISHING RX FROM DR FERGUSON. History of Any Multi-Drug Resistant Organisms: None Reported Past Surgical History: Breast Surgery, Cholecystectomy, Hysterectomy, Joint Replacement Additional Past Surgical History / Comment(s): RT RADICAL MASTECTOMY, CARI C ATARACTS, TOTAL RIGHT KNEE. Past Anesthesia/Blood Transfusion Reactions: No Reported Reaction Past Psychological History: No Psychological Hx Reported Smoking Status: Never smoker Past Alcohol Use History: Rare Past Drug Use History: None Reported - Past Family History Mother Family Medical History: Cancer Additional Family Medical History / Comment(s): BREAST CANCER Daughter(s) Family Medical History: Cancer Additional Family Medical History / Comment(s): BREAST CANCER General Exam Limitations: no limitations General appearance: alert, in no apparent distress Head exam: Present: atraumatic, normocephalic Eye exam: Present: normal appearance. Absent: scleral icterus, conjunctival injection Neck exam: Present: normal inspection Respiratory exam: Present: normal lung sounds bilaterally. Absent: respiratory distress, wheezes, rales, rhonchi, stridor, chest wall tenderness, accessory muscle use, decreased breath sounds, prolonged expiratory Cardiovascular Exam: Present: regular rate, normal rhythm, normal heart sounds. Absent: systolic murmur, diastolic murmur, rubs, gallop GI/Abdominal exam: Present: soft. Absent: distended, tenderness, guarding, rebound, rigid, mass Extremities exam: Present: normal inspection, normal capillary refill. Absent: pedal edema, calf tenderness Back exam: Present: normal inspection. Absent: CVA tenderness (R), CVA tenderness (L) Neurological exam: Present: alert Skin exam: Present: warm, dry, intact, normal color. Absent: rash Course Vital Signs 07/04/18 20:56 Temperature 98.7 F Pulse Rate 78 Respiratory 18 Rate Blood Pressure 218/111 O2 Sat by Pulse 94 L Oximetry Disposition Clinical Impression: Fracture, sternum closed Disposition: HOME SELF-CARE Condition: Fair Instructions (If sedation given, give patient instructions): Rib Fracture (ED) Prescriptions: Hydrocodone/Acetaminophen [Shaniko 5-325] 1 each PO Q6HR PRN #20 tab PRN Reason: Pain Is patient prescribed a controlled substance at d/c from ED?: No Referrals: Ke Power MD [Primary Care Provider] - 1-2 days
[2018-07-04 21:59] LABS: Basophils % (A) 0 %; Eosinophils # (A) 0.1 k/uL (0-0.7); Eosinophils % (A) 1 %; HCT 42.8 % (34.0-46.0); HGB 14.6 gm/dL (11.4-16.0); Lymphocytes # (A) 1.2 k/uL (1.0-4.8); Lymphocytes % (A) 15 %; MCH 31.6 pg (25.0-35.0); MCHC 34.1 g/dL (31.0-37.0); MCV 92.8 fL (80.0-100.0); Mean Platelet Volume 6.6; Monocytes # (A) 0.5 k/uL (0-1.0); Monocytes % (A) 6 %; Neutrophils # (A) 5.7 k/uL (1.3-7.7); Neutrophils % (A) 74 %; Platelet Count 202 k/uL (150-450); RBC 4.61 m/uL (3.80-5.40); RDW 11.9 % (11.5-15.5); WBC 7.7 k/uL (3.8-10.6)
[2018-07-04 22:12] LABS: ALT 24 U/L (9-52); AST 19 U/L (14-36); Albumin 4.2 g/dL (3.5-5.0); Alkaline Phosphatase 116 U/L (38-126); Anion Gap 8 mmol/L; Blood Urea Nitrogen 15 mg/dL (7-17); Calcium 9.8 mg/dL (8.4-10.2); Carbon Dioxide 23 mmol/L (22-30); Chloride 100 mmol/L (98-107); Glucose 111 mg/dL (74-99); Potassium 4.2 mmol/L (3.5-5.1); Sodium 131 mmol/L (137-145); Total Bilirubin 0.8 mg/dL (0.2-1.3); Total Protein 7.1 g/dL (6.3-8.2)
--- NOTE | 2018-07-04 22:13 | XR ---
EXAM: XR Chest, 2 Views CLINICAL HISTORY: ITS.REASON XR Reason: Pain TECHNIQUE: Frontal and lateral views of the chest. COMPARISON: 07/18/16. FINDINGS: Lungs: Mild perihilar/infrahilar opacities. Probable chronic lung changes. Pleural space: Trace pleural effusions not excluded. Heart: Retrocardiac opacity, query ectatic/tortuous aorta or other etiology. Mediastinum: Unremarkable. Bones/joints: Possible sternal fracture, better seen on sternum views. IMPRESSION: 1. Mild perihilar/infrahilar opacities. Correlate clinically regarding inflammatory/infectious process. 2. Trace pleural effusions not excluded. 3. Retrocardiac opacity, query ectatic/tortuous aorta or other etiology.
--- NOTE | 2018-07-04 22:18 | XR ---
EXAM: XR Sternum, 2 or More Views CLINICAL HISTORY: ITS.REASON XR Reason: Pain TECHNIQUE: Lateral and oblique views of the sternum. COMPARISON: No relevant prior studies available. FINDINGS: Bones/joints: Cortical discontinuity at the mid sternum suggestive of fracture. Soft tissues: Soft tissue swelling. IMPRESSION: Cortical discontinuity at the mid sternum suggestive of fracture.
[2018-07-04 23:23] VITALS: BP 163/90; PULSE 81; RESP 16; TEMP 98
== END 2018-07-04 23:35 | disposition home or self-care (01) ==
LOC: EC 20:29
DX: S22.20XA Unspecified fracture of sternum, initial encounter for closed fracture (principal); I10 Essential (primary) hypertension; E07.9 Disorder of thyroid, unspecified; M17.12 Unilateral primary osteoarthritis, left knee; Z85.3 Personal history of malignant neoplasm of breast; Z96.651 Presence of right artificial knee joint; Z91.040 Latex allergy status; Z79.890 Hormone replacement therapy; Z79.891 Long term (current) use of opiate analgesic; Z79.899 Other long term (current) drug therapy; W22.8XXA Striking against or struck by other objects, initial encounter; Y93.E9 Activity, other interior property and clothing maintenance
CPT/HCPCS: 99284 ×2; 96374 ×2; 36415; 93005; 80053; 84484; 85025; 71120; 71046; J2270

== ENCOUNTER → 2018-08-23 | Outpatient (CLI) | payer MEDICARE, BC ==
[2018-08-23 13:13] LABS: HCT 43.4 % (34.0-46.0); HGB 14.1 gm/dL (11.4-16.0); MCH 30.9 pg (25.0-35.0); MCHC 32.4 g/dL (31.0-37.0); MCV 95.5 fL (80.0-100.0); Mean Platelet Volume 7.2; Platelet Count 197 k/uL (150-450); RBC 4.54 m/uL (3.80-5.40); RDW 12.2 % (11.5-15.5); WBC 3.9 k/uL (3.8-10.6)
[2018-08-23 13:46] LABS: Eosinophils # (M) 0.16 k/uL (0-0.7); Lymphocytes # (M) 1.52 k/uL (1.0-4.8); Monocytes # (M) 0.39 k/uL (0-1.0); Neutrophils # (M) 1.83 k/uL (1.3-7.7); Neutrophils % (M) 47 %; Nucleated Red Blood Cells 0 /100 WBC (0-0); Total Cells Counted 100
[2018-08-23 18:57] LABS: Anion Gap 6.1 mmol/L (4.00-12.00); Calcium 9.4 mg/dL (8.7-10.3); Carbon Dioxide 25.9 mmol/L (21.6-31.8); Potassium 4.5 mmol/L (3.5-5.5)
== END | disposition home or self-care (01) ==
LOC: LABWHC1 12:08
PROVIDERS: ATTEND Obstetrics & Gynecology
DX: Z01.812 Encounter for preprocedural laboratory examination (principal)
CPT/HCPCS: 36415; 80048; 85025

== ENCOUNTER 2018-08-31 06:13 | Day surgery (SDC) | payer MEDICARE, BC ==
[2018-08-24 15:34] VITALS: BMI 26.2
--- NOTE | 2018-08-30 20:30 | P.HPOB ---
History of Present Illness H&P Date: 08/30/18 Chief Complaint: rectocele 87 year old presents for posterior repair. Review of Systems All systems: negative Constitutional: Denies chills, Denies fever Eyes: denies blurred vision, denies pain Ears, nose, mouth and throat: Denies headache, Denies sore throat Cardiovascular: Denies chest pain, Denies shortness of breath Respiratory: Denies cough Gastrointestinal: Denies abdominal pain, Denies diarrhea, Denies nausea, Denies vomiting Genitourinary: Denies dysuria, Denies hematuria Musculoskeletal: Denies myalgias Integumentary: Denies pruritus, Denies rash Neurological: Denies numbness, Denies weakness Psychiatric: Denies anxiety, Denies depression Endocrine: Denies fatigue, Denies weight change Past Medical History Past Medical History: Cancer, Eye Disorder, Hearing Disorder / Deafness, Hyperlipidemia, Hypertension, Liver Disease, Osteoarthritis (OA), Thyroid Disorder Additional Past Medical History / Comment(s): RT BREAST CA W/ SURGERY 1968. HX HEPATITIS 1968. MILD BACK PAIN, MACULAR DEGENERATION. HAND & ARM TREMORS. LOOSES BALANCE -UNSTEADY, LAST FALL 6 MO AGO, NT BLE. SL EDEMA BLE. OCC DIZZINESS IF GETS UP QUICKLY. HX OF UTI'S, HAS RECTOCELE. History of Any Multi-Drug Resistant Organisms: None Reported Past Surgical History: Breast Surgery, Cholecystectomy, Hysterectomy, Joint Replacement Additional Past Surgical History / Comment(s): RT RADICAL MASTECTOMY, CARI CATARACTS, TOTAL RIGHT KNEE. Past Anesthesia/Blood Transfusion Reactions: No Reported Reaction Smoking Status: Never smoker - Past Family History Mother Family Medical History: Cancer Additional Family Medical History / Comment(s): BREAST CANCER Daughter(s) Family Medical History: Cancer Additional Family Medical History / Comment(s): 2 DAUGHTER'S, BREAST CANCER Medications and Allergies Home Medications Medication Instructions Recorded Confirmed Type Vits A,C,E/Lutein/Minerals 1 tab PO BID 07/09/16 08/24/18 History [Ocuvite with Lutein Tablet] Acetaminophen [Tylenol Extra 500 mg PO DAILY PRN 07/02/18 08/24/18 History Strength] Atenolol [Tenormin] 50 mg PO HS 07/02/18 08/24/18 History Levothyroxine Sodium [Synthroid] 75 mcg PO DAILY 07/02/18 08/24/18 History Lisinopril [Zestril] 10 mg PO HS 07/02/18 08/24/18 History Primidone [Mysoline] 50 mg PO HS 07/04/18 08/24/18 History Propylene Glycol [Systane Complete] 1 drop BOTH EYES DIRECTED PRN 08/24/18 08/24/18 History Allergies Allergy/AdvReac Type Severity Reaction Status Date / Time latex Allergy Rash/Hives Verified 07/04/18 21:30 Exam Osteopathic Statement: *. No significant issues noted on an osteopathic structural exam other than those noted in the History and Physical/Consult. Heart: RRR Lungs: CTAB Abdomen: soft, nontender Extremeties: neg shane's Assessment and Plan (1) Rectocele Status: Acute Code(s): N81.6 - RECTOCELE SNOMED Code(s): 426342915 Plan: 1. posterior colporrhaphy
[~2018-08-31 06:13] MED LIST changes: -ACETAMINOPHEN TAB 500 MG TAB PO ONE; -FAMOTIDINE 20 MG/2 ML VIAL IV PRN; +HYDROmorphone 0.5 MG/0.5 ML SYRINGE IVP PRN; -HYDROmorphone 1 MG/ML 1 ML SYRINGE IVP PRN; +LACTATED RINGERS 1,000 ML IV SCH; -MELOXICAM 7.5 MG TAB PO ONE; -MIDAZOLAM 2 MG/2 ML VIAL IV PRN; +SCOPOLAMINE 1.5MG/72HR PATCH TRANSDERM ONE; -TRANEXAMIC ACID 1,000 MG in SODIUM CHLORIDE 0.9% 100 ML IVPB ONE; -ceFAZolin 2 GM in SODIUM CHLORIDE 0.9% 100 ML IVPB ONE
[2018-08-31] MEDS ORDERED: MORPHINE SULFATE 2 MG/ML SYRINGE IVP PRN (07:00)
[2018-08-31] MEDS ORDERED: diphenhydrAMINE 50 MG/ML 1 ML VIAL IVP PRN (07:00)
[2018-08-31] MEDS ORDERED: ONDANSETRON 4 MG/2 ML VIAL IVP PRN (07:00)
[2018-08-31] MEDS ORDERED: NALOXONE 0.4 MG/ML 1 ML VIAL IV PRN (07:00)
[2018-08-31] MEDS ORDERED: SUCCINYLCHOLINE CHLORIDE 100 MG/5 ML SYR IV ONE (07:37)
[2018-08-31] MEDS ORDERED: fentaNYL (PF) 50 MCG/ML 2 ML AMP ONE (07:37)
[2018-08-31] MEDS ORDERED: PROPOFOL 10 MG/ML 20 ML VIAL IV ONE (07:37)
[2018-08-31] MEDS ORDERED: MORPHINE SULFATE (PF) 0.3 MG/0.3 ML SYR ONE (07:37)
[2018-08-31] MEDS ORDERED: LIDOCAINE 1% INJ 10MG/ML (20 ML MDV) ONE (07:37)
[2018-08-31] MEDS ORDERED: diphenhydrAMINE 50 MG/ML 1 ML VIAL IVP ONE (07:41)
[2018-08-31] MEDS: ceFAZolin IN SWFI 2 GM/20 ML SYRINGE IVP ONE ×2 (08:01→08:07)
[2018-08-31] MEDS ORDERED: VASOPRESSIN IV ONE ×2 (08:09)
[2018-08-31] MEDS ORDERED: SODIUM CHLORIDE 0.9% IV ONE ×2 (08:09)
[2018-08-31] MEDS ORDERED: BACITRACIN 500 UNIT/GM OINT 28.4 GM TUBE TOPICAL ONE (08:13)
--- NOTE | 2018-08-31 08:40 | P.OP ---
Date of Procedure: 08/31/18 Preoperative Diagnosis: 1. rectocele Postoperative Diagnosis: 1. Rectocele Procedure(s) Performed: Posterior colporrhaphy Anesthesia: GABY Surgeon: Mary Villela Chief Service Observer #1: Lupe Loza Estimated Blood Loss (ml): 5 IV fluids (ml): 200 Urine output (ml): 400 Pathology: other (Vaginal mucosa) Condition: stable Disposition: PACU Operative Findings: Grade 3 rectocele Description of Procedure: Patient is taken the operating room where general anesthesia obtained without difficulty. She was prepped and draped in normal sterile fashion dorsal lithotomy position, legs placed in candycane stirrups. The bladder was drained of all urine. Grade 3 rectocele easily visible. Allis clamps were used to grasp the posterior vaginal mucosa. The vaginal mucosa was then infiltrated with diluted vasopressin. An incision was made first with a scalpel and then carried along with the Metzenbaums up the midline of the rectocele. The vaginal mucosa was peeled off the underlying fascia. Esha plication stitches were placed with 0 Vicryl. The rectocele reduced nicely. The excess vaginal mucosa was trimmed and then closed with 0 Vicryl in a running locked fashion. Excellent hemostasis was achieved. Patient tolerated the procedure well, sponge and instrument counts are correct 2. She was taken to recovery in stable condition.
[2018-08-31 08:42] VITALS: TEMP 97.3
[2018-08-31 08:52] VITALS: RESP 16
[2018-08-31 09:36] VITALS: BP 141/88; PULSE 57
== END 2018-08-31 10:21 | disposition home or self-care (01) ==
LOC: OR 06:13 → 6PED 08:28 → OR 08:56
PROVIDERS: ATTEND Obstetrics & Gynecology
DX: N81.6 Rectocele (principal); I10 Essential (primary) hypertension; E07.9 Disorder of thyroid, unspecified; M19.90 Unspecified osteoarthritis, unspecified site; G25.0 Essential tremor; H35.30 Unspecified macular degeneration; H91.90 Unspecified hearing loss, unspecified ear; K76.9 Liver disease, unspecified; M54.9 Dorsalgia, unspecified; Z90.710 Acquired absence of both cervix and uterus; Z85.3 Personal history of malignant neoplasm of breast; Z90.11 Acquired absence of right breast and nipple; Z90.49 Acquired absence of other specified parts of digestive tract; Z96.651 Presence of right artificial knee joint; Z80.3 Family history of malignant neoplasm of breast; Z86.19 Personal history of other infectious and parasitic diseases; Z79.890 Hormone replacement therapy; Z79.899 Other long term (current) drug therapy; Z91.040 Latex allergy status
CPT/HCPCS: 57250; 86900; 86901; 86850; J1200; J1100; J2405; J2001; J2274; J3010; J0330; J2704; J0690

== ENCOUNTER 2020-06-26 13:57 | Inpatient (IN) | payer MEDICARE, BC ==
[2020-06-26 14:50] LABS: Calcium 9.2 mg/dL (8.4-10.2); Potassium 4.2 mmol/L (3.5-5.1); Total Bilirubin 0.9 mg/dL (0.2-1.3); Total Protein 6.7 g/dL (6.3-8.2)
[2020-06-26 15:00] LABS: Partial Thromboplastin Time 24.1 sec (22.0-30.0); Prothrombin Time 11.1 sec (9.0-12.0)
[2020-06-26 15:05] LABS: Basophils % (A) 0 %; Eosinophils % (A) 0 %; HCT 42.2 % (34.0-46.0); HGB 14.2 gm/dL (11.4-16.0); Lymphocytes # (A) 0.1 k/uL (1.0-4.8); Lymphocytes % (A) 1 %; MCH 32.6 pg (25.0-35.0); MCHC 33.8 g/dL (31.0-37.0); MCV 96.6 fL (80.0-100.0); Mean Platelet Volume 7.9; Monocytes # (A) 0.9 k/uL (0-1.0); Monocytes % (A) 4 %; Neutrophils # (A) 19.3 k/uL (1.3-7.7); Neutrophils % (A) 94 %; Platelet Count 173 k/uL (150-450); RBC 4.36 m/uL (3.80-5.40); RDW 12.6 % (11.5-15.5); WBC 20.5 k/uL (3.8-10.6)
--- NOTE | 2020-06-26 16:34 | ED ---
General Adult HPI - General Chief complaint: Weakness Stated complaint: Weakness Time Seen by Provider: 06/26/20 16:15 Source: patient Mode of arrival: wheelchair Limitations: no limitations - History of Present Illness Initial comments: Is an 89-year-old female history of hypertension, hyperlipidemia, hepatitis in the past who presents emergency department for generalized weakness and fatigue. The patient states that the symptoms started yesterday. She states that she feels like she is having trouble getting around her house because she feels like her legs are just very weak. She states that she did have a fall last week however was able to get up and did not sustain any injuries at that time. She denies hitting her head or having any neck pain. She states that she has had a little bit of left-sided flank pain and also been having some urinary frequency. No dysuria. She states that she was placed on ciprofloxacin last week however she stopped taking it because she stated that it did not make her feel well. She denies any fevers at home. No chills. No cough, shortness of breath, chest pains. She states that she's had a little bit of nausea however no abdominal pain. No vomiting. No diarrhea. Admits to constipation area no other acute complaints. The patient had blood work performed while waiting in the waiting room that showed a leukocytosis and also some transaminitis. - Related Data Home Medications Medication Instructions Recorded Confirmed Acetaminophen [Tylenol Extra 1,000 mg PO DAILY 07/02/18 06/26/20 Strength] Levothyroxine Sodium [Synthroid] 75 mcg PO DAILY 07/02/18 06/26/20 atenoloL [Tenormin] 50 mg PO HS 07/02/18 06/26/20 lisinopriL [Zestril] 10 mg PO HS 07/02/18 06/26/20 Primidone [Mysoline] 100 mg PO HS 07/04/18 06/26/20 Aspirin EC [Ecotrin] 650 mg PO HS 06/26/20 06/26/20 Citalopram Hydrobromide [CeleXA] 10 mg PO HS 06/26/20 06/26/20 Ergocalciferol (Vitamin D2) 1,250 mcg PO WEEKLY 06/26/20 06/26/20 [Drisdol (50,000 Iu)] Primidone [Mysoline] 250 mg PO DAILY 06/26/20 06/26/20 Vit C/E/Zn/Coppr/Lutein/Zeaxan 1 cap PO BID 06/26/20 06/26/20 [Preservision Areds 2 Softgel] diphenhydrAMINE [Benadryl] 50 mg PO HS 06/26/20 06/26/20 Allergies Allergy/AdvReac Type Severity Reaction Status Date / Time latex Allergy Rash/Hives Verified 06/26/20 14:04 Review of Systems ROS Statement: Those systems with pertinent positive or pertinent negative responses have been documented in the HPI. ROS Other: All systems not noted in ROS Statement are negative. Past Medical History Past Medical History: Cancer, Eye Disorder, Hearing Disorder / Deafness, Hyperlipidemia, Hypertension, Liver Disease, Osteoarthritis (OA), Thyroid Disorder Additional Past Medical History / Comment(s): RT BREAST CA W/ SURGERY 1968. HX HEPATITIS 1968. MILD BACK PAIN, MACULAR DEGENERATION. HAND & ARM TREMORS. LOOSES BALANCE -UNSTEADY, LAST FALL 6 MO AGO, NT BLE. SL EDEMA BLE. OCC DIZZINE SS IF GETS UP QUICKLY. HX OF UTI'S, HAS RECTOCELE. History of Any Multi-Drug Resistant Organisms: None Reported Past Surgical History: Breast Surgery, Cholecystectomy, Hysterectomy, Joint Replacement Additional Past Surgical History / Comment(s): RT RADICAL MASTECTOMY, CARI CATARACTS, TOTAL RIGHT KNEE. Past Anesthesia/Blood Transfusion Reactions: No Reported Reaction Past Psychological History: No Psychological Hx Reported Smoking Status: Never smoker Past Alcohol Use History: Rare Past Drug Use History: None Reported - Past Family History Mother Family Medical History: Cancer Additional Family Medical History / Comment(s): BREAST CANCER Daughter(s) Family Medical History: Cancer Additional Family Medical History / Comment(s): 2 DAUGHTER'S, BREAST CANCER General Exam - General Exam Comments Initial Comments: Constitutional: Awake alert Appears comfortable Head: Normocephalic atraumatic Eyes: no conjunctival injection No scleral icterus EOMI Neck: No JVD Supple Heart: Regular rate rhythm normal S1-S2 no murmurs Lungs: Clear to auscultation bilaterally No wheezing No rales Abdomen: Soft nondistended nontender, no right upper quadrant tenderness, no CVA tenderness Extremities: Non edematous DP pulses intact Radial pulses intact, bruising to the right wrist and also to the left knee which appears old Neuro: A&Ox3 No focal neurologic deficits Psych: Appropriate mood and affect Limitations: no limitations Course Vital Signs 06/26/20 06/26/20 14:04 16:28 Temperature 98.8 F Pulse Rate 97 77 Respiratory 18 16 Rate Blood Pressure 96/56 132/70 O2 Sat by Pulse 94 L 95 Oximetry - Reevaluation(s) Reevaluation #1: 06/26/20 18:27 Pt with evidence for septic stone. Spoke with Dr. Wetzel who agreed he would take for intervention this evening. Placed on consult. Pt updated. Appears well. BP good. Will repeat lactate. EKG Findings - EKG Comments: EKG Findings:: EKG was read as atrial fibrillation however it appears that the patient does have P waves. Specifically in V1. It appears that she does have a first-degree AV block. Rate of 95. I do not see any abnormal ST 7 changes or T-wave inversions. QTC is 434. Other intervals normal. No ectopy. Medical Decision Making - Medical Decision Making Is an 89-year-old female presents emergency department for generalized weakness left flank pain and urinary frequency. The patient was found to have urinary tract infection and also a left 2 mm UVJ kidney stone that was obstructing with hydrocephalus. The patient had a white count of 20 and lactic acid 3.7. She had stable vital signs however in the emergency department. She was given a liter of fluids and started on IV Rocephin. Spoke with Dr. coreas who stated that he was going to take the patient for intervention this evening. Dr. Lira accepts the patient for admission. The patient was updated and agrees with plan of care. - Lab Data Result diagrams: 06/26/20 14:34 06/26/20 14:34 Lab Results 06/26/20 06/26/20 06/26/20 Range/Units 14:34 14:34 14:34 WBC 20.5 H (3.8-10.6) k/uL RBC 4.36 (3.80-5.40) m/uL Hgb 14.2 (11.4-16.0) gm/dL Hct 42.2 (34.0-46.0) % MCV 96.6 (80.0-100.0) fL MCH 32.6 (25.0-35.0) pg MCHC 33.8 (31.0-37.0) g/dL RDW 12.6 (11.5-15.5) % Plt Count 173 (150-450) k/uL MPV 7.9 Neutrophils % 94 % Lymphocytes % 1 % Monocytes % 4 % Eosinophils % 0 % Basophils % 0 % Neutrophils # 19.3 H (1.3-7.7) k/uL Lymphocytes # 0.1 L (1.0-4.8) k/uL Monocytes # 0.9 (0-1.0) k/uL Eosinophils # 0.0 (0-0.7) k/uL Basophils # 0.0 (0-0.2) k/uL PT 11.1 (9.0-12.0) sec INR 1.0 (<1.2) APTT 24.1 (22.0-30.0) sec Sodium 131 L (137-145) mmol/L Potassium 4.2 (3.5-5.1) mmol/L Chloride 102 (98-107) mmol/L Carbon Dioxide 20 L (22-30) mmol/L Anion Gap 9 mmol/L BUN 24 H (7-17) mg/dL Creatinine 1.15 H (0.52-1.04) mg/dL Est GFR (CKD-EPI)AfAm 49 (>60 ml/min/1.73 sqM) Est GFR (CKD-EPI)NonAf 43 (>60 ml/min/1.73 sqM) Glucose 167 H (74-99) mg/dL Plasma Lactic Acid Valentino (0.7-2.0) mmol/L Calcium 9.2 (8.4-10.2) mg/dL Total Bilirubin 0.9 (0.2-1.3) mg/dL AST 185 H (14-36) U/L ALT 144 H (4-34) U/L Alkaline Phosphatase 158 H (38-126) U/L Troponin I (0.000-0.034) ng/mL Total Protein 6.7 (6.3-8.2) g/dL Albumin 4.0 (3.5-5.0) g/dL Urine Color Urine Appearance (Clear) Urine pH (5.0-8.0) Ur Specific Ira (1.001-1.035) Urine Protein (Negative) Urine Glucose (UA) (Negative) Urine Ketones (Negative) Urine Blood (Negative) Urine Nitrite (Negative) Urine Bilirubin (Negative) Urine Urobilinogen (<2.0) mg/dL Ur Leukocyte Esterase (Negative) Urine RBC (0-5) /hpf Urine WBC (0-5) /hpf Ur Squamous Epith Cells (0-4) /hpf Urine Bacteria (None) /hpf 06/26/20 06/26/20 06/26/20 Range/Units 14:34 16:30 16:30 WBC (3.8-10.6) k/uL RBC (3.80-5.40) m/uL Hgb (11.4-16.0) gm/dL Hct (34.0-46.0) % MCV (80.0-100.0) fL MCH (25.0-35.0) pg MCHC (31.0-37.0) g/dL RDW (11.5-15.5) % Plt Count (150-450) k/uL MPV Neutrophils % % Lymphocytes % % Monocytes % % Eosinophils % % Basophils % % Neutrophils # (1.3-7.7) k/uL Lymphocytes # (1.0-4.8) k/uL Monocytes # (0-1.0) k/uL Eosinophils # (0-0.7) k/uL Basophils # (0-0.2) k/uL PT (9.0-12.0) sec INR (<1.2) APTT (22.0-30.0) sec Sodium (137-145) mmol/L Potassium (3.5-5.1) mmol/L Chloride (98-107) mmol/L Carbon Dioxide (22-30) mmol/L Anion Gap mmol/L BUN (7-17) mg/dL Creatinine (0.52-1.04) mg/dL Est GFR (CKD-EPI)AfAm (>60 ml/min/1.73 sqM) Est GFR (CKD-EPI)NonAf (>60 ml/min/1.73 sqM) Glucose (74-99) mg/dL Plasma Lactic Acid Valentino 3.7 H* (0.7-2.0) mmol/L Calcium (8.4-10.2) mg/dL Total Bilirubin (0.2-1.3) mg/dL AST (14-36) U/L ALT (4-34) U/L Alkaline Phosphatase (38-126) U/L Troponin I <0.012 (0.000-0.034) ng/mL Total Protein (6.3-8.2) g/dL Albumin (3.5-5.0) g/dL Urine Color Dark Brown Urine Appearance Turbid H (Clear) Urine pH 6.0 (5.0-8.0) Ur Specific Ira 1.021 (1.001-1.035) Urine Protein 2+ H (Negative) Urine Glucose (UA) Negative (Negative) Urine Ketones Negative (Negative) Urine Blood Large H (Negative) Urine Nitrite Negative (Negative) Urine Bilirubin Negative (Negative) Urine Urobilinogen <2.0 (<2.0) mg/dL Ur Leukocyte Esterase Large H (Negative) Urine RBC >182 H (0-5) /hpf Urine WBC >182 H (0-5) /hpf Ur Squamous Epith Cells 8 H (0-4) /hpf Urine Bacteria Few H (None) /hpf 06/26/20 Range/Units 16:30 WBC (3.8-10.6) k/uL RBC (3.80-5.40) m/uL Hgb (11.4-16.0) gm/dL Hct (34.0-46.0) % MCV (80.0-100.0) fL MCH (25.0-35.0) pg MCHC (31.0-37.0) g/dL RDW (11.5-15.5) % Plt Count (150-450) k/uL MPV Neutrophils % % Lymphocytes % % Monocytes % % Eosinophils % % Basophils % % Neutrophils # (1.3-7.7) k/uL Lymphocytes # (1.0-4.8) k/uL Monocytes # (0-1.0) k/uL Eosinophils # (0-0.7) k/uL Basophils # (0-0.2) k/uL PT (9.0-12.0) sec INR (<1.2) APTT (22.0-30.0) sec Sodium (137-145) mmol/L Potassium (3.5-5.1) mmol/L Chloride (98-107) mmol/L Carbon Dioxide (22-30) mmol/L Anion Gap mmol/L BUN (7-17) mg/dL Creatinine (0.52-1.04) mg/dL Est GFR (CKD-EPI)AfAm (>60 ml/min/1.73 sqM) Est GFR (CKD-EPI)NonAf (>60 ml/min/1.73 sqM) Glucose (74-99) mg/dL Plasma Lactic Acid Valentino (0.7-2.0) mmol/L Calcium (8.4-10.2) mg/dL Total Bilirubin (0.2-1.3) mg/dL AST (14-36) U/L ALT (4-34) U/L Alkaline Phosphatase (38-126) U/L Troponin I <0.012 (0.000-0.034) ng/mL Total Protein (6.3-8.2) g/dL Albumin (3.5-5.0) g/dL Urine Color Urine Appearance (Clear) Urine pH (5.0-8.0) Ur Specific Ira (1.001-1.035) Urine Protein (Negative) Urine Glucose (UA) (Negative) Urine Ketones (Negative) Urine Blood (Negative) Urine Nitrite (Negative) Urine Bilirubin (Negative) Urine Urobilinogen (<2.0) mg/dL Ur Leukocyte Esterase (Negative) Urine RBC (0-5) /hpf Urine WBC (0-5) /hpf Ur Squamous Epith Cells (0-4) /hpf Urine Bacteria (None) /hpf Disposition Clinical Impression: Sepsis, Kidney stone Disposition: ADMITTED IP TO THIS [facility] Condition: Serious Referrals: Ke Power MD [Primary Care Provider] - 1-2 days
[2020-06-26] MEDS: SODIUM CHLORIDE 0.9% 500 ML 500 ML IV SCH ×2 (16:52→18:30)
[2020-06-26] MEDS: SODIUM CHLORIDE 0.9% 1,000 ML IV SCH ×2 (16:52→23:11)
[2020-06-26 17:36] LABS: Appearance,Urine Turbid (Clear); Bacteria,Urine Few /hpf; Bilirubin,Urine Negative (Negative); Blood,Urine Large (Negative); Color,Urine Dark Brown; Glucose,Urine (UA) Negative (Negative); Ketones,Urine Negative (Negative); Leukocyte Esterase,Urine Large (Negative); Nitrite,Urine Negative (Negative); Protein,Urine 2+ (Negative); RBC,Urine >182 /hpf (0-5); Specific Gravity,Urine 1.021 (1.001-1.035); Squamous Epithelial Cell,Urine 8 /hpf (0-4); Urobilinogen,Urine <2.0 mg/dL (<2.0); WBC,Urine >182 /hpf (0-5)
--- NOTE | 2020-06-26 17:36 | CT ---
EXAMINATION TYPE: CT abdomen pelvis w con DATE OF EXAM: 06/26/2020 COMPARISON: None available. HISTORY: Left sided pain with weakness CT DLP: 914.9 mGycm Automated exposure control for dose reduction was used. TECHNIQUE: Helical acquisition of images was performed from the lung bases through the pelvis. CONTRAST: Performed without Oral Contrast and with IV Contrast, patient injected with 80 mL of Isovue 300. FINDINGS: LUNG BASES: No significant abnormality is appreciated. LIVER/GB: No acute abnormality is appreciated. Cholecystectomy noted. 5 mm low attenuating hepatic fo cus without suspicious feature and probable benign cyst. PANCREAS: No significant abnormality is seen. SPLEEN: No significant abnormality is seen. ADRENALS: Moderate left adrenal gland thickening. Right adrenal gland within normal limits. KIDNEYS: 2 mm calculus at the left ureterovesicular junction with moderate left hydronephrosis. Addit ional nonobstructing 0.8 cm left renal calculus in the upper pole. There is note of 1 cm dystrophic c alcification in the region of the left mid ureter. No right hydronephrosis or nephrolithiasis. FREE AIR: No free air is visualized. RETROPERITONEAL ADENOPATHY: None visualized REPRODUCTIVE ORGANS: No significant abnormality is seen URINARY BLADDER: No significant abnormality is seen. PELVIC ADENOPATHY: None visualized. OSSEOUS STRUCTURES: No acute abnormality is seen. Moderate lumbar spondylosis with levoconvex curvat ure. BOWEL: No significant abnormality is seen. OTHER: None. IMPRESSION: 2 MM OBSTRUCTING LEFT UVJ CALCULUS WITH MILD TO MODERATE LEFT HYDRONEPHROSIS WITH PERINEPHRIC FAT STR ANDING. ADDITIONAL 1 CM DYSTROPHIC CALCIFICATION IN THE REGION OF THE LEFT MID URETER, IS FELT TO REPRESENT V ASCULAR CALCIFICATION. Additional nonobstructing left renal calculus. Nonspecific left adrenal gland thickening. Chronic and incidental findings as above.
--- NOTE | 2020-06-26 17:58 | XR ---
EXAMINATION TYPE: XR chest 1V portable DATE OF EXAM: 06/26/2020 COMPARISON: 07/04/2018. HISTORY: Weakness. TECHNIQUE: Single frontal view of the chest is obtained. FINDINGS: There is no focal air space opacity, pleural effusion, or pneumothorax seen. The cardiac silhouette size is within normal limits. The osseous structures are intact. IMPRESSION: No acute process.
[2020-06-26] MEDS ORDERED: NALOXONE 0.4 MG/ML 1 ML VIAL IV PRN (18:45)
--- NOTE | 2020-06-26 20:38 | P.GSCN ---
History of Present Illness Consult date: 06/26/20 Reason for Consult: Septic left ureteral stone History of present illness: Ms Garber is an 89-year-old female that presented to the ED with generalized weakness and fatigue. The patient states that the symptoms started yesterday. She is also complaining of left-sided flank pain, with frequency. Denies any dysuria or gross hematuria. Denies any fevers or chills. No previous history of kidney stones. In the ED she underwent a CT scan that demonstrated evidence of 2 mm left UVJ stone, and a 1 cm renal stone with hydronephrosis. On presentation patient WBC was 20.5 and her lactate was 3.7. Review of Systems - Constitutional Reports fatigue, Reports weakness, Denies chills, Denies fever - EENT Ears, nose, mouth and throat: Denies dysphagia - Cardiovascular Denies chest pain, Denies shortness of breath - Respiratory Denies cough, Denies 7 - Gastrointestinal Reports abdominal pain, Reports nausea, Denies vomiting - Genitourinary Genitourinary: Reports flank pain, Reports kidney stones, Denies dysuria, Denies hematuria - Integumentary Denies rash, Denies unusual bruising - Neurological Denies headaches, Denies syncope - Hematologic/Lymphatic Denies easy bleeding, Denies easy bruising Past Medical History Past Medical History: Cancer, Eye Disorder, Hearing Disorder / Deafness, Hyperlipidemia, Hypertension, Liver Disease, Osteoarthritis (OA), Thyroid Disorder Additional Past Medical History / Comment(s): RT BREAST CA W/ SURGERY 1968. HX HEPATITIS 1968. MILD BACK PAIN, MACULAR DEGENERATION. HAND & ARM TREMORS. LOOSES BALANCE -UNSTEADY, LAST FALL 6 MO AGO, NT BLE. SL EDEMA BLE. OCC DIZZINESS IF GETS UP QUICKLY. HX OF UTI'S, HAS RECTOCELE. History of Any Multi-Drug Resistant Organisms: None Reported Past Surgical History: Breast Surgery, Cholecystectomy, Hysterectomy, Joint Replacement Additional Past Surgical History / Comment(s): RT RADICAL MASTECTOMY, CARI CATARACTS, TOTAL RIGHT KNEE. Past Anesthesia/Blood Transfusion Reactions: No Reported Reaction Past Psychological History: No Psychological Hx Reported Smoking Status: Never smoker Past Alcohol Use History: Rare Past Drug Use History: None Reported - Past Family History Mother Family Medical History: Cancer Additional Family Medical History / Comment(s): BREAST CANCER Daughter(s) Family Medical History: Cancer Additional Family Medical History / Comment(s): 2 DAUGHTER'S, BREAST CANCER Medications and Allergies Home Medications Medication Instructions Recorded Confirmed Type Acetaminophen [Tylenol Extra 1,000 mg PO DAILY 07/02/18 06/26/20 History Strength] Levothyroxine Sodium [Synthroid] 75 mcg PO DAILY 07/02/18 06/26/20 History atenoloL [Tenormin] 50 mg PO HS 07/02/18 06/26/20 History lisinopriL [Zestril] 10 mg PO HS 07/02/18 06/26/20 History Primidone [Mysoline] 100 mg PO HS 07/04/18 06/26/20 History Aspirin EC [Ecotrin] 650 mg PO HS 06/26/20 06/26/20 History Citalopram Hydrobromide [CeleXA] 10 mg PO HS 06/26/20 06/26/20 History Ergocalciferol (Vitamin D2) 1,250 mcg PO WEEKLY 06/26/20 06/26/20 History [Drisdol (50,000 Iu)] Primidone [Mysoline] 250 mg PO DAILY 06/26/20 06/26/20 History Vit C/E/Zn/Coppr/Lutein/Zeaxan 1 cap PO BID 06/26/20 06/26/20 History [Preservision Areds 2 Softgel] diphenhydrAMINE [Benadryl] 50 mg PO HS 06/26/20 06/26/20 History Allergies Allergy/AdvReac Type Severity Reaction Status Date / Time latex Allergy Rash/Hives Verified 06/26/20 14:04 Surgical - Exam Vital Signs Temp Pulse Resp BP Pulse Ox 98.8 F 97 18 96/56 94 L 06/26/20 14:04 06/26/20 14:04 06/26/20 14:04 06/26/20 14:04 06/26/20 14:04 - General well developed, well nourished, no distress, moderate pain - Eyes PERRL, normal ocular movement - ENT normal nares, normal mucosa - Respiratory normal expansion, normal respiratory effort - Abdomen Abdomen: soft, non tender - Neurologic normal sensation, no disoriented, no confused - Psychiatric oriented to time, oriented to person, oriented to place Results - Labs 06/26/20 14:34 06/26/20 14:34 Abnormal Lab Results - Last 24 Hours (Table) 06/26/20 06/26/20 06/26/20 Range/Units 14:34 14:34 16:30 WBC 20.5 H (3.8-10.6) k/uL Neutrophils # 19.3 H (1.3-7.7) k/uL Lymphocytes # 0.1 L (1.0-4.8) k/uL Sodium 131 L (137-145) mmol/L Carbon Dioxide 20 L (22-30) mmol/L BUN 24 H (7-17) mg/dL Creatinine 1.15 H (0.52-1.04) mg/dL Glucose 167 H (74-99) mg/dL Plasma Lactic Acid Valentino (0.7-2.0) mmol/L AST 185 H (14-36) U/L ALT 144 H (4-34) U/L Alkaline Phosphatase 158 H (38-126) U/L Urine Appearance Turbid H (Clear) Urine Protein 2+ H (Negative) Urine Blood Large H (Negative) Ur Leukocyte Esterase Large H (Negative) Urine RBC >182 H (0-5) /hpf Urine WBC >182 H (0-5) /hpf Ur Squamous Epith Cells 8 H (0-4) /hpf Urine Bacteria Few H (None) /hpf 06/26/20 06/26/20 Range/Units 16:30 16:46 WBC (3.8-10.6) k/uL Neutrophils # (1.3-7.7) k/uL Lymphocytes # (1.0-4.8) k/uL Sodium (137-145) mmol/L Carbon Dioxide (22-30) mmol/L BUN (7-17) mg/dL Creatinine (0.52-1.04) mg/dL Glucose (74-99) mg/dL Plasma Lactic Acid Valentino 3.7 H* 3.4 H* (0.7-2.0) mmol/L AST (14-36) U/L ALT (4-34) U/L Alkaline Phosphatase (38-126) U/L Urine Appearance (Clear) Urine Protein (Negative) Urine Blood (Negative) Ur Leukocyte Esterase (Negative) Urine RBC (0-5) /hpf Urine WBC (0-5) /hpf Ur Squamous Epith Cells (0-4) /hpf Urine Bacteria (None) /hpf Diabetes panel 06/26/20 Range/Units 14:34 Sodium 131 L (137-145) mmol/L Potassium 4.2 (3.5-5.1) mmol/L Chloride 102 (98-107) mmol/L Carbon Dioxide 20 L (22-30) mmol/L BUN 24 H (7-17) mg/dL Creatinine 1.15 H (0.52-1.04) mg/dL Glucose 167 H (74-99) mg/dL Calcium 9.2 (8.4-10.2) mg/dL AST 185 H (14-36) U/L ALT 144 H (4-34) U/L Alkaline Phosphatase 158 H (38-126) U/L Total Protein 6.7 (6.3-8.2) g/dL Albumin 4.0 (3.5-5.0) g/dL Calcium panel 06/26/20 Range/Units 14:34 Calcium 9.2 (8.4-10.2) mg/dL Albumin 4.0 (3.5-5.0) g/dL Pituitary panel 06/26/20 Range/Units 14:34 Sodium 131 L (137-145) mmol/L Potassium 4.2 (3.5-5.1) mmol/L Chloride 102 (98-107) mmol/L Carbon Dioxide 20 L (22-30) mmol/L BUN 24 H (7-17) mg/dL Creatinine 1.15 H (0.52-1.04) mg/dL Glucose 167 H (74-99) mg/dL Calcium 9.2 (8.4-10.2) mg/dL Adrenal panel 06/26/20 Range/Units 14:34 Sodium 131 L (137-145) mmol/L Potassium 4.2 (3.5-5.1) mmol/L Chloride 102 (98-107) mmol/L Carbon Dioxide 20 L (22-30) mmol/L BUN 24 H (7-17) mg/dL Creatinine 1.15 H (0.52-1.04) mg/dL Glucose 167 H (74-99) mg/dL Calcium 9.2 (8.4-10.2) mg/dL Total Bilirubin 0.9 (0.2-1.3) mg/dL AST 185 H (14-36) U/L ALT 144 H (4-34) U/L Alkaline Phosphatase 158 H (38-126) U/L Total Protein 6.7 (6.3-8.2) g/dL Albumin 4.0 (3.5-5.0) g/dL Assessment and Plan Assessment: 89-year-old female presents with sepsis secondary to a 2 mm left ureteral stone. On presentation patient's white count is 20.5, her lactate is 3.7. Discussed with her given this finding recommend we proceed with ureteral stent placement. She was agreeable with that plan. I discussed with her that this is not a definitive stone management and she will need a ureteroscopy in the future. This plan was also discussed with the patient daughter Naomy over the phone Plan: -OR for left stent placement -Follow up on urine and blood culture
[2020-06-26] MEDS ORDERED: IV FLUID CONTINUATION 900 ML IV ONE (21:02)
--- NOTE | 2020-06-26 22:22 | P.OP ---
Date of Procedure: 06/26/20 Preoperative Diagnosis: Left-sided ureteral stone, sepsis Postoperative Diagnosis: Same Procedure(s) Performed: Cystoscopy left ureteral stent placement Implants: 6-Central African by 26 cm stent Anesthesia: GETA Estimated Blood Loss (ml): 1 Pathology: none sent Condition: stable Disposition: PACU Indications for Procedure: 89-year-old female presents with sepsis secondary to a 2 mm left ureteral stone. On presentation patient's white count is 20.5, her lactate is 3.7. Discussed with her given this finding recommend we proceed with ureteral stent placement. She was agreeable with that plan. I discussed with her that this is not a definitive stone management and she will need a ureteroscopy in the future. This plan was also discussed with the patient daughter Naomy over the phone Description of Procedure: Patient was brought to the operating room, sedation was induced. She was prepped and draped in sterile fashion a placed in dorsal lithotomy position. Cystoscopy fitted with a 21-Central African sheath was inserted per urethra, attention was carried to the left ureteral orifice which was intubated with a sensor wire. The wire was advanced into the collecting system. Next a ureteral stent was passed over the wire, the proximal curl was visualized on fluoroscopy and distal curl was visualized using the cystoscope. Cloudy urine was draining from the stent. a 16 Central [place] silicone catheter was placed with return of cloudy urine. The patient was awakened from anesthesia and taken to recovery in stable condition
[2020-06-26] MEDS: CITALOPRAM HYDROBROMIDE 10 MG TAB PO SCH (23:10)
[2020-06-26] MEDS: METOPROLOL TARTRATE 12.5 MG TAB PO SCH (23:10)
[2020-06-26] MEDS: PRIMIDONE 50 MG TAB PO SCH (23:10)
[2020-06-26] MEDS: ASPIRIN 325 MG TAB PO SCH (23:11)
[2020-06-26] MEDS: ENOXAPARIN 40 MG/0.4 ML SYRINGE SQ SCH (23:13)
[2020-06-27] MEDS: LEVOTHYROXINE 75 MCG TAB PO SCH (05:11)
--- NOTE | 2020-06-27 08:11 | FL ---
Fluoroscopy INDICATION: Pain FINDINGS: Fluoroscopy time: 3 seconds. Images obtained: 1. IMPRESSIONS: 1. Documentation of fluoroscopy.
[2020-06-27] MEDS: METOPROLOL TARTRATE 12.5 MG TAB PO SCH ×2 (08:43→20:56)
[2020-06-27] MEDS: PRIMIDONE 250 MG TAB PO SCH (08:43)
[2020-06-27] MEDS: SODIUM CHLORIDE 0.9% 1,000 ML IV SCH ×2 (08:43→16:30)
[2020-06-27] MEDS: ENOXAPARIN 40 MG/0.4 ML SYRINGE SQ SCH (08:43)
[2020-06-27 15:04] LABS: Hepatitis A Antibody IgM Non-Reactive (Non-Reactive); Hepatitis B Core IgM Non-Reactive (Non-Reactive); Hepatitis B Surface Antigen Non-Reactive (Non-Reactive); Hepatitis C IgG Antibody Non-Reactive (Non-Reactive)
[2020-06-27 16:44] LABS: African American GFR (CKD) 68 (>60 ml/min/1.73 sqM); Anion Gap 4 mmol/L; Blood Urea Nitrogen 27 mg/dL (7-17); Calcium 8.4 mg/dL (8.4-10.2); Carbon Dioxide 21 mmol/L (22-30); Chloride 109 mmol/L (98-107); Glucose 98 mg/dL (74-99); Non-African American GFR(CKD) 59 (>60 ml/min/1.73 sqM); Sodium 134 mmol/L (137-145)
[2020-06-27 16:59] LABS: Basophils % (A) 0 %; Eosinophils % (A) 0 %; HCT 39.3 % (34.0-46.0); HGB 12.8 gm/dL (11.4-16.0); Lymphocytes # (A) 0.5 k/uL (1.0-4.8); Lymphocytes % (A) 4 %; MCH 32.6 pg (25.0-35.0); MCHC 32.6 g/dL (31.0-37.0); MCV 100.1 fL (80.0-100.0); Mean Platelet Volume 7.7; Monocytes # (A) 0.7 k/uL (0-1.0); Monocytes % (A) 6 %; Neutrophils # (A) 10.5 k/uL (1.3-7.7); Neutrophils % (A) 87 %; Platelet Count 109 k/uL (150-450); RBC 3.93 m/uL (3.80-5.40); RDW 12.7 % (11.5-15.5); WBC 12.2 k/uL (3.8-10.6)
--- NOTE | 2020-06-27 18:14 | P.HPIM ---
History of Present Illness H&P Date: 06/27/20 Chief Complaint: Feeling weak chills History of presenting complaint: This is a very pleasant 89-year-old patient who follows with Dr. Ke Power. Chronic stable medical conditions include hard of hearing, hypertension, hyperlipidemia, osteoarthritis, hypothyroid, history of breast cancer with surgery, macular degeneration, rectocele. Patient presents with feeling very weak for last 2 days. Some chills. Also having left flank pain. And some burning sensation in the urine. Denies any respiratory symptoms. Computed tomography scan in the ER and it showed 2 mm Pleasant the left UV junction with moderate left hydronephrosis. Also nonobstructing calculi was noted. Patient was taken to the OR by Dr. Quinteros. A left ureteral stent was placed. Cloudy urine was draining from the stent. Patient today does feel tired and rundown. Somewhat better. Review of systems: GEN.: Tired chills weak EYES: None HEENT: None NECK: None RESPIRATORY: None CARDIOVASCULAR: None GASTROINTESTINAL: Decreased appetite GENITOURINARY: Dysuria] MUSCULOSKELETAL: Joint pains LYMPHATICS: None HEMATOLOGICAL: None PSYCHIATRY: None NEUROLOGICAL: Does use a walker Past medical history to include: Hard of hearing, hyperlipidemia, hypertension, obstructive does, hypothyroid, right breast cancer with surgery 1968. Macular degeneration. Tremors. Unsteady balance. Rectocele Social history: Lives alone. Does use a walker. No smoking. Alcohol rarely. Physical examination: VITAL SIGNS: 98, 77, 16, 102/59, 94% on room air GENERAL: BMI 23.7, laying in bed, tired. EYES: Pupils equal. Conjunctiva normal. HEENT: External appearance of nose and ears normal, oral cavity grossly normal. Decreased hearing NECK: JVD not raised; masses not palpable. HEART: First and second heart sounds are normal; no edema. LUNGS: Respiratory rate normal; clear to auscultation. ABDOMEN: Soft, nontender, liver spleen not palpable, no masses palpable. PSYCH: Alert and oriented x3; mood and affect tiredl. MUSCULAR skeletal: Evidence of OA multiple joints NEUROLOGICAL: Cranial nerves grossly intact; no facial asymmetry, power and sensation grossly intact. LYMPHATICS: No lymph nodes palpable in the axilla and neck INVESTIGATIONS, reviewed in the clinical context: WBC 12.2 hemoglobin 12.8 platelets 109 potassium 5 bun 27 creatinine 0.88 Admitting labs: WBC 20.5 hemoglobin 14.2 platelets 173 potassium 4.2 bun 24 creatinine 1.15 Lactic acid 3.7 AST 185 ALT 144 Troponin I 3 negative UA positive for blood, leukoesterase, WBC Acute hepatitis screen negative EKG tracing personally reviewed by sinus rhythm Computed tomography scan of the abdomen: Stone of the left UV junction with secondary hydronephrosis. Left kidney stone. Chest x-ray film personally reviewed by me-no acute Assessment and plan: -Subclinical pyelonephritis on the left side from uretero=pelvic stone causing secondary hydronephrosis. Patient did undergo a stent placement. Patient placed on IV fluids, IV ceftriaxone. Cultures pending -Sepsis from above. Blood cultures started to grow Proteus. On IV antibiotics -Hard of hearing -Essential hypertension, continue with Zestril, Tenormin -Hypothyroid -Chronic gait dysfunction uses a walker -Essential tremors for which patient is on Mysoline Patient be kept on IV fluids IV ceftriaxone. Await culture results. Care was discussed with the patient. Questions answered. Given the complexity and severity of patient's condition expect the patient to be in the hospital at least for 2 overnights Past Medical History Past Medical History: Cancer, Eye Disorder, Hearing Disorder / Deafness, Hyperlipidemia, Hypertension, Liver Disease, Osteoarthritis (OA), Thyroid Disorder Additional Past Medical History / Comment(s): RT BREAST CA W/ SURGERY 1968. HX HEPATITIS 1968. MILD BACK PAIN, MACULAR DEGENERATION. HAND & ARM TREMORS. LOOSES BALANCE -UNSTEADY, SL EDEMA BLE. OCC DIZZINESS IF GETS UP QUICKLY. HX OF UTI'S, RECTOCELE. History of Any Multi-Drug Resistant Organisms: None Reported Past Surgical History: Breast Surgery, Cholecystectomy, Hysterectomy, Joint Replacement Additional Past Surgical History / Comment(s): RT RADICAL MASTECTOMY, CARI CATARACTS, TOTAL RIGHT KNEE. Past Anesthesia/Blood Transfusion Reactions: No Reported Reaction Past Psychological History: No Psychological Hx Reported Smoking Status: Never smoker Past Alcohol Use History: Rare Past Drug Use History: None Reported - Past Family History Mother Family Medical History: Cancer Additional Family Medical History / Comment(s): BREAST CANCER Daughter(s) Family Medical History: Cancer Additional Family Medical History / Comment(s): 2 DAUGHTER'S, BREAST CANCER Medications and Allergies Home Medications Medication Instructions Recorded Confirmed Type Acetaminophen [Tylenol Extra 1,000 mg PO DAILY 07/02/18 06/26/20 History Strength] Levothyroxine Sodium [Synthroid] 75 mcg PO DAILY 07/02/18 06/26/20 History atenoloL [Tenormin] 50 mg PO HS 07/02/18 06/26/20 History lisinopriL [Zestril] 10 mg PO HS 07/02/18 06/26/20 History Primidone [Mysoline] 100 mg PO HS 07/04/18 06/26/20 History Aspirin EC [Ecotrin] 650 mg PO HS 06/26/20 06/26/20 History Citalopram Hydrobromide [CeleXA] 10 mg PO HS 06/26/20 06/26/20 History Ergocalciferol (Vitamin D2) 1,250 mcg PO WEEKLY 06/26/20 06/26/20 History [Drisdol (50,000 Iu)] Primidone [Mysoline] 250 mg PO DAILY 06/26/20 06/26/20 History Vit C/E/Zn/Coppr/Lutein/Zeaxan 1 cap PO BID 06/26/20 06/26/20 History [Preservision Areds 2 Softgel] diphenhydrAMINE [Benadryl] 50 mg PO HS 06/26/20 06/26/20 History Allergies Allergy/AdvReac Type Severity Reaction Status Date / Time latex Allergy Rash/Hives Verified 06/26/20 21:04 Physical Exam Vitals: Vital Signs Temp Pulse Pulse Resp BP BP Pulse Ox 06/27/20 05:06 98 F 77 16 102/59 94 L 06/27/20 01:00 83 119/69 94 L 06/27/20 00:30 86 114/64 94 L 06/27/20 00:00 84 115/81 94 L 06/26/20 23:45 78 117/67 93 L 06/26/20 23:30 87 110/53 94 L 06/26/20 23:15 80 110/64 93 L 06/26/20 23:02 98.0 F 88 16 132/68 93 L 06/26/20 23:00 16 06/26/20 22:45 83 16 112/55 94 L 06/26/20 22:30 83 16 118/58 94 L 06/26/20 22:22 84 16 114/57 94 L 06/26/20 20:54 88 16 142/81 94 L 06/26/20 20:35 85 15 132/71 96 06/26/20 16:28 77 16 132/70 95 06/26/20 14:04 98.8 F 97 18 96/56 94 L Intake and Output 06/26/20 06/27/20 06/27/20 22:59 06:59 14:59 Intake Total 300 1140 Output Total 250 Balance 300 890 Intake: IV 300 Intake, IV Titration 780 Amount Sodium Chloride 0.9% 1, 780 000 ml @ 130 mls/hr IV . Q7H42M [facility] Rx#:[id number] Oral 360 Output: Urine 250 Uretheral (Grajeda) 250 Other: Voiding Method Indwelling Catheter Indwelling Catheter Weight 70.76 kg Results CBC & Chem 7: 06/27/20 16:42 06/27/20 15:41 Labs: Abnormal Lab Results - Last 24 Hours (Table) 06/26/20 06/26/20 06/26/20 Range/Units 14:34 14:34 16:30 WBC 20.5 H (3.8-10.6) k/uL Neutrophils # 19.3 H (1.3-7.7) k/uL Lymphocytes # 0.1 L (1.0-4.8) k/uL Sodium 131 L (137-145) mmol/L Carbon Dioxide 20 L (22-30) mmol/L BUN 24 H (7-17) mg/dL Creatinine 1.15 H (0.52-1.04) mg/dL Glucose 167 H (74-99) mg/dL Plasma Lactic Acid Valentino (0.7-2.0) mmol/L AST 185 H (14-36) U/L ALT 144 H (4-34) U/L Alkaline Phosphatase 158 H (38-126) U/L Urine Appearance Turbid H (Clear) Urine Protein 2+ H (Negative) Urine Blood Large H (Negative) Ur Leukocyte Esterase Large H (Negative) Urine RBC >182 H (0-5) /hpf Urine WBC >182 H (0-5) /hpf Ur Squamous Epith Cells 8 H (0-4) /hpf Urine Bacteria Few H (None) /hpf 06/26/20 06/26/20 Range/Units 16:30 16:46 WBC (3.8-10.6) k/uL Neutrophils # (1.3-7.7) k/uL Lymphocytes # (1.0-4.8) k/uL Sodium (137-145) mmol/L Carbon Dioxide (22-30) mmol/L BUN (7-17) mg/dL Creatinine (0.52-1.04) mg/dL Glucose (74-99) mg/dL Plasma Lactic Acid Valentino 3.7 H* 3.4 H* (0.7-2.0) mmol/L AST (14-36) U/L ALT (4-34) U/L Alkaline Phosphatase (38-126) U/L Urine Appearance (Clear) Urine Protein (Negative) Urine Blood (Negative) Ur Leukocyte Esterase (Negative) Urine RBC (0-5) /hpf Urine WBC (0-5) /hpf Ur Squamous Epith Cells (0-4) /hpf Urine Bacteria (None) /hpf Microbiology - Last 24 Hours (Table) 06/26/20 16:30 Urine Culture - Preliminary Urine,Voided Thrombosis Risk Factor Assmnt - Choose All That Apply Each Factor Represents 1 point: Minor surgery planned Each Risk Factor Represents 3 Points: Age 75 years or older Thrombosis Risk Factor Assessment Total Risk Factor Score: 4 Thrombosis Risk Factor Assessment Level: Moderate Risk
[2020-06-27] MEDS: PRIMIDONE 50 MG TAB PO SCH (20:56)
[2020-06-27] MEDS: CITALOPRAM HYDROBROMIDE 10 MG TAB PO SCH (20:56)
[2020-06-27] MEDS: ASPIRIN 325 MG TAB PO SCH (20:56)
[2020-06-28] MEDS: SODIUM CHLORIDE 0.9% 1,000 ML IV SCH ×4 (00:20→22:53)
[2020-06-28] MEDS: ONDANSETRON 4 MG/2 ML VIAL IVP PRN (00:48)
[2020-06-28] MEDS: LEVOTHYROXINE 75 MCG TAB PO SCH (05:49)
[2020-06-28 07:15] LABS: Basophils % (A) 0 %; Eosinophils # (A) 0.1 k/uL (0-0.7); Eosinophils % (A) 1 %; HCT 34.1 % (34.0-46.0); HGB 11.7 gm/dL (11.4-16.0); Lymphocytes # (A) 0.6 k/uL (1.0-4.8); Lymphocytes % (A) 7 %; MCH 33.3 pg (25.0-35.0); MCHC 34.4 g/dL (31.0-37.0); MCV 96.9 fL (80.0-100.0); Mean Platelet Volume 7.7; Monocytes # (A) 0.5 k/uL (0-1.0); Monocytes % (A) 6 %; Neutrophils # (A) 6.9 k/uL (1.3-7.7); Neutrophils % (A) 84 %; Platelet Count 116 k/uL (150-450); RBC 3.52 m/uL (3.80-5.40); WBC 8.3 k/uL (3.8-10.6)
[2020-06-28 07:27] LABS: African American GFR (CKD) >90 (>60 ml/min/1.73 sqM); Anion Gap 5 mmol/L; Blood Urea Nitrogen 20 mg/dL (7-17); Calcium 8.2 mg/dL (8.4-10.2); Carbon Dioxide 22 mmol/L (22-30); Chloride 109 mmol/L (98-107); Glucose 100 mg/dL (74-99); Non-African American GFR(CKD) 78 (>60 ml/min/1.73 sqM); Potassium 4.1 mmol/L (3.5-5.1); Sodium 136 mmol/L (137-145)
[2020-06-28] MEDS: METOPROLOL TARTRATE 12.5 MG TAB PO SCH ×2 (09:28→21:00)
[2020-06-28] MEDS: PRIMIDONE 250 MG TAB PO SCH (09:28)
[2020-06-28] MEDS: ENOXAPARIN 40 MG/0.4 ML SYRINGE SQ SCH (09:36)
--- NOTE | 2020-06-28 16:08 | P.PN ---
Subjective Progress Note Date: 06/28/20 History of presenting complaint: This is a very pleasant 89-year-old patient who follows with Dr. Ke Power. Chronic stable medical conditions include hard of hearing, hypertension, hyperlipidemia, osteoarthritis, hypothyroid, history of breast cancer with surgery, macular degeneration, rectocele. Patient presents with feeling very weak for last 2 days. Some chills. Also having left flank pain. And some burning sensation in the urine. Denies any respiratory symptoms. Computed tomography scan in the ER and it showed 2 mm Pleasant the left UV junction with moderate left hydronephrosis. Also nonobstructing calculi was noted. Patient was taken to the OR by Dr. Quinteros. A left ureteral stent was placed. Cloudy urine was draining from the stent. Patient today does feel tired and rundown. Somewhat better. 06/28/2020 Patient is seen and evaluated and follow-up this morning and is status post left ureteral stent placement and is being closely monitored. Patient is currently maintained on IV antibiotics in the form of ceftriaxone and will continue this time. Urine cultures preliminary showing gram-negative bacilli. Awaiting for culture finalization. Infectious Disease was consulted as blood cultures are showing Proteus species and repeat blood cultures ordered. We'll continue to monitor for clearance. Urology following as well. PT/OT evaluating the patient with the possibility of rehab and if necessary will consult social work. Case management following as needed. White blood count trending down and 8.3, hemoglobin is stable at 11.7, sodium 136, potassium 4.1, current creatinine is 0.69. Blood pressure slightly elevated will resume appropriate home medication s. Review of systems: Constitutional: No reports of fatigue, fever, or chills Cardiovascular: No reports of chest pain or palpitations Respiratory: No reports of shortness of breath or cough GI: No reports of nausea, vomiting, or diarrhea : No reports of dysuria or retention Neurovascular: Reports generalized weakness All medications have been reviewed Objective - Vital Signs Vital signs: Vital Signs Temp 98.0 F 06/28/20 12:40 Pulse 64 06/28/20 12:40 Resp 16 06/28/20 12:40 BP 168/93 06/28/20 12:40 Pulse Ox 95 06/28/20 12:40 Intake & Output 06/27/20 06/28/20 06/28/20 18:59 06:59 18:59 Intake Total 1480 1170 Output Total 1000 Balance 1480 170 Intake: Intake, IV Titration 1480 1170 Amount Sodium Chloride 0.9% 1, 1430 1170 000 ml @ 130 mls/hr IV . Q7H42M [facility] Rx#:[id number] cefTRIAXone 1 gm In 50 Sodium Chloride 0.9% 50 ml @ 100 mls/hr IVPB Q24HR [facility] Rx#:[id number] Output: Urine 1000 Uretheral (Grajeda) 1000 Other: Voiding Method Indwelling Catheter Indwelling Catheter - Exam Gen: This is a 89-year-old female sitting up in the chair, awake, alert and oriented 3, well-developed, well-nourished. HEENT: Head is atraumatic, normocephalic. Pupils equal, round. Sclerae is anicteric. NECK: Supple. No JVD. No lymphadenopathy. No thyromegaly. LUNGS: Clear to auscultation. No wheezes or rhonchi. No intercostal retractions. HEART: Regular rate and rhythm. No murmur. ABDOMEN: Soft. Bowel sounds are present. No masses. No tenderness. EXTREMITIES: No pedal edema. No calf tenderness. NEUROLOGICAL: Patient is awake, alert and oriented x3. Diffusely weak. - Labs CBC & Chem 7: 06/28/20 06:31 06/28/20 06:31 Labs: Abnormal Lab Results - Last 24 Hours (Table) 06/27/20 06/27/20 06/28/20 Range/Units 15:41 16:42 06:31 WBC 12.2 H (3.8-10.6) k/uL RBC 3.52 L (3.80-5.40) m/uL MCV 100.1 H (80.0-100.0) fL Plt Count 109 L 116 L (150-450) k/uL Neutrophils # 10.5 H (1.3-7.7) k/uL Lymphocytes # 0.5 L 0.6 L (1.0-4.8) k/uL Sodium 134 L (137-145) mmol/L Chloride 109 H (98-107) mmol/L Carbon Dioxide 21 L (22-30) mmol/L BUN 27 H (7-17) mg/dL Glucose (74-99) mg/dL Calcium (8.4-10.2) mg/dL 03/25/21 Range/Units 06:31 WBC (3.8-10.6) k/uL RBC (3.80-5.40) m/uL MCV (80.0-100.0) fL Plt Count (150-450) k/uL Neutrophils # (1.3-7.7) k/uL Lymphocytes # (1.0-4.8) k/uL Sodium 136 L (137-145) mmol/L Chloride 109 H (98-107) mmol/L Carbon Dioxide (22-30) mmol/L BUN 20 H (7-17) mg/dL Glucose 100 H (74-99) mg/dL Calcium 8.2 L (8.4-10.2) mg/dL Microbiology - Last 24 Hours (Table) 06/26/20 16:45 Blood Culture Gram Stain - Preliminary Blood Blood Culture - Preliminary Proteus spec 06/26/20 16:30 Blood Culture Gram Stain - Preliminary Blood Blood Culture - Preliminary Proteus Species 06/26/20 16:30 Urine Culture - Preliminary Urine,Voided Gram Neg Bacilli 06/26/20 16:45 Blood Culture - Final Blood Assessment and Plan Assessment: -Subclinical pyelonephritis on the left side from uretero=pelvic stone causing secondary hydronephrosis. Patient did undergo a stent placement. Patient placed on IV fluids, IV ceftriaxone. Cultures pending -Sepsis from above. Blood cultures started to grow Proteus. On IV antibiotics -Hard of hearing -Essential hypertension, continue with Zestril, Tenormin -Hypothyroid -Chronic gait dysfunction uses a walker -Essential tremors for which patient is on Mysoline Plan: Continue with current medications and will resume appropriate home medications as blood pressure slightly elevated. Patient is being followed by urology she had a recent stent placement. Patient states her back pain has improved and denies any urinary frequency or dysuria. Infectious disease consulted as patient's blood cultures were found to be positive and will repeat blood cultures to monitor for clearance of bacteremia. Patient's urine culture preliminary showing gram-negative bacilli and patient is maintained on IV ceftriaxone and will continue at this time. Patient was seen and evaluated by PT/OT therapy as she has continued generalized weakness and recommending subacute rehab and patient is only agreeable to [facility] if accepted. Social work consult placed and currently pending. Further recommendations to follow depending on the clinical course of the patient.
--- NOTE | 2020-06-28 17:12 | P.PN ---
Subjective Progress Note Date: 06/28/20 Postoperative day #2 status post left ureteral stent placement for sepsis secondary to ureteral stone. no overnight events. Denies any flank pain or gross hematuria this am. Her blood cultures is positive for Proteus Objective - Vital Signs Vital signs: Vital Signs Temp 98.0 F 06/28/20 12:40 Pulse 64 06/28/20 12:40 Resp 16 06/28/20 12:40 BP 168/93 06/28/20 12:40 Pulse Ox 95 06/28/20 12:40 Intake & Output 06/27/20 06/28/20 06/28/20 18:59 06:59 18:59 Intake Total 1480 1170 Output Total 1000 Balance 1480 170 Intake: Intake, IV Titration 1480 1170 Amount Sodium Chloride 0.9% 1, 1430 1170 000 ml @ 130 mls/hr IV . [id number] [facility] Rx#:[id number] cefTRIAXone 1 gm In 50 Sodium Chloride 0.9% 50 ml @ 100 mls/hr IVPB Q24HR [facility] Rx#:[id number] Output: Urine 1000 Uretheral (Baptiste) 1000 Other: Voiding Method Indwelling Catheter Indwelling Catheter - Constitutional General appearance: Present: no acute distress - Psychiatric Psychiatric: Present: A&O x's 3 - Labs CBC & Chem 7: 06/28/20 06:31 06/28/20 06:31 Labs: Abnormal Lab Results - Last 24 Hours (Table) 06/28/20 06/28/20 Range/Units 06:31 06:31 RBC 3.52 L (3.80-5.40) m/uL Plt Count 116 L (150-450) k/uL Lymphocytes # 0.6 L (1.0-4.8) k/uL Sodium 136 L (137-145) mmol/L Chloride 109 H (98-107) mmol/L BUN 20 H (7-17) mg/dL Glucose 100 H (74-99) mg/dL Calcium 8.2 L (8.4-10.2) mg/dL Microbiology - Last 24 Hours (Table) 06/26/20 16:45 Blood Culture Gram Stain - Preliminary Blood Blood Culture - Preliminary Proteus spec 06/26/20 16:30 Blood Culture Gram Stain - Preliminary Blood Blood Culture - Preliminary Proteus Species 06/26/20 16:30 Urine Culture - Preliminary Urine,Voided Gram Neg Bacilli Assessment and Plan Assessment: 89-year-old female presents with sepsis secondary to a 2 mm left ureteral stone. On presentation patient's white count is 20.5, her lactate is 3.7. Patient underwent ureteral stent placement on June 26. Patient has been hemodynamically stable, white count 7 trending down, lactate is also been trending down. Her blood cultures positive for Proteus Plan: -D/C baptiste, obtain a PVR after patient voids -Given positive blood culture, and septic stone recommend minimum of 14 days of antibiotic -Okay for discharge from urology standpoint once cultures are finalized -In follow-up as an outpatient in 2 weeks, will need to be set up for left-sided ureteroscopy
[2020-06-28] MEDS: CITALOPRAM HYDROBROMIDE 10 MG TAB PO SCH (20:59)
[2020-06-28] MEDS: ASPIRIN 325 MG TAB PO SCH (20:59)
[2020-06-28] MEDS ORDERED: lisinopriL 10 MG TAB PO SCH (21:00)
[2020-06-28] MEDS: PRIMIDONE 50 MG TAB PO SCH (21:00)
--- NOTE | 2020-06-29 05:37 | CONS ---
CONSULTATION DATE OF SERVICE: 06/28/2020 REASON FOR CONSULTATION: Bacteremia. HISTORY OF PRESENT ILLNESS: The patient is an 89-year-old female presenting to the ER at [facility] on 06/26/2020 for evaluation of generalized weakness and fatigue. The patient's symptoms started the day before she presented to the hospital. The patient did have a fall last week, however, she was able to get up and did not sustain any injuries. The patient denies having any headache. No chest pain, shortness of breath, cough, no abdominal pain, no diarrhea. She does complain of some pain in the left flank area, more of a dull aching at times sharp, 3 to 4/10 no radiation. No significant burning or frequency of urine. With these symptoms, the patient was evaluated by the ER physician. On arrival to the ER, the patient was afebrile and no fever has been recorded during this admission. The patient did have white count of 20,000 on admission, lactic acid elevated at 3.4. Urine was positive. The patient did have a CT of abdomen and pelvis with evidence of left-sided hydronephrosis. The patient has been taken to OR status and is post cystoscopy and left ureteral stent placement. The patient has been treated with Rocephin with the blood cultures coming back positive with Gram-negative bacilli that has prompted this Infectious Disease consultation. REVIEW OF SYSTEMS: Positive points have been mentioned in HPI. Rest of systems are negative. PAST MEDICAL HISTORY: Hypertension, hyperlipidemia, osteoarthritis, hypothyroidism, history of right breast, macular degeneration. PAST SURGICAL HISTORY: Cholecystectomy, hysterectomy, right radical mastectomy, bilateral cataract surgery, total knee replacement right side. SOCIAL HISTORY: No history of smoking. Rarely drinks. No drug use. FAMILY HISTORY: Mother with history of breast cancer. Daughter also with history of breast cancer. ALLERGIES: LATEX. MEDICATIONS: The patient is currently on aspirin, Rocephin 1 g daily, Celexa, Lovenox, Synthroid, Zestril, Lopressor, Narcan, Zofran, IV fluid. PHYSICAL EXAMINATION: VITAL SIGNS: Blood pressure 179/96 with a pulse of 76, temperature 98.3, she is 96% on room air. GENERAL DESCRIPTION: Patient is an elderly female lying in bed in no distress. No tachypnea or accessory muscles of respiration use. HEENT: Examination shows no pallor or scleral icterus. Oral mucous membrane is dry. NECK: Trachea central, no thyromegaly. LUNGS: Unlabored breathing, clear to auscultation anteriorly. No wheeze or crackle. HEART: S1-S2, regular rate and rhythm. ABDOMEN: Soft, no tenderness. No guarding or rigidity. EXTREMITIES: No edema of the feet. SKIN: No rash or mass palpable. NEUROLOGICAL: Patient is awake, alert, oriented times three. Mood and affect normal. LABS: Hemoglobin 11.7, white count of 12.2, admission white count 20,000, BUN of 20, creatinine 0.69. Lactic acid 3.4 on admission and repeat is 0.9. CT of abdomen and pelvis as mentioned above. Blood and urine with Proteus mirabilis. DIAGNOSTIC IMPRESSION: Patient admitted to the hospital with sepsis in this patient did have elevated white count and lactic acid secondary to complicated urinary tract infection with left-sided hydronephrosis in this patient who is status post cystoscopy and left ureteral stent placement. PLAN: 1. We will keep the patient on Rocephin 1 g IV piggyback daily. 2. Await repeat blood cultures to be negative and sensitivity to finalize. Hopefully will be able to finish therapy with oral antibiotics. Thank you for this consultation. Will follow this patient along with you. MMODL / IJN: [id number] /
[2020-06-29] MEDS: LEVOTHYROXINE 75 MCG TAB PO SCH (06:19)
[2020-06-29] MEDS: SODIUM CHLORIDE 0.9% 1,000 ML IV SCH (09:21)
[2020-06-29] MEDS: ONDANSETRON 4 MG/2 ML VIAL IVP PRN (09:24)
[2020-06-29] MEDS: PRIMIDONE 250 MG TAB PO SCH (11:07)
[2020-06-29] MEDS: ENOXAPARIN 40 MG/0.4 ML SYRINGE SQ SCH (11:07)
[2020-06-29] MEDS: METOPROLOL TARTRATE 12.5 MG TAB PO SCH (11:07)
[2020-06-29 13:39] VITALS: BP 156/93; PULSE 73; RESP 16; TEMP 98.5
--- NOTE | 2020-06-29 15:04 | P.DS ---
Providers Date of admission: 06/26/20 18:45 Expected date of discharge: 06/29/20 Attending physician: Eloy Lira Consults: 06/26/20 18:23 Consult Physician Urgent Consulting Provider: Hussain Wetzel Consult Reason/Comments: Septic Kidney Stone Do you want consulting provider notified?: Already Contacted 06/28/20 10:32 Consult Physician Urgent Consulting Provider: Lino Jewell Consult Reason/Comments: positive blood cultures Do you want consulting provider notified?: Yes Primary care physician: Ke Power MD Hospital Course: Final diagnosis -Subclinical pyelonephritis on the left side from uretero=pelvic stone causing secondary hydronephrosis. Status post ureteral stent placement. -Sepsis from above. Blood cultures started to grow Proteus. Post recent blood cultures being negative -Hard of hearing -Essential hypertension -Hypothyroid -Chronic gait dysfunction uses a walker -Essential tremors for which patient is on Mysoline Discharge disposition Patient is being discharged in a stable condition with guarded prognosis to home. Patient will continue with home care in the outpatient setting. Patient will follow-up with Dr. Ke Power in the outpatient setting upon discharge. Patient also instructed to follow-up with Dr. Jewell in the outpatient setting in 1 week. She was also follow-up with urology in the outpatient setting within the next week. Patient will continue on Oral antibiotics in the form of Cipro 500 mg twice daily for the next 12 days. Total time taken is greater than 35 minutes. Hospital course 06/29/2020 Patient is seen and evaluated this morning and follow-up with no acute overnight issues. Patient has been maintained on IV ceftriaxone while awaiting for cultures to finalized. Patient had positive blood culture showing Proteus Mirabilis with most recent blood cultures being negative for 24 hours. Urine cultures did finalized showing this as well. Patient underwent cystoscopy with ureteral stent placement and will follow-up with urology in the outpatient setting. Patient also follow-up with infectious disease in one week in the clinic and will be maintained on Cipro 500 mg twice daily for the next 12 days. Patient did have some weakness upon admission and was seen and evaluated by physical therapy and showed clinical improvement and did not qualify for rehab and patient will be going home with home care. Currently no reports of chest pain, shortness of breath, or palpitations. Patient is afebrile. No reports of nausea or vomiting and patient is tolerating diet. Patient will be discharged home today. On exam vital signs are stable. Cardio S1, S2 are muffled. Respiratory system shows diminished breath sounds at the bases with no wheezing or rhonchi noted. Abdomen is soft and nontender. Nervous system shows no focal deficits. Please refer to medication reconciliation sheet for a list of medications. Patient Condition at Discharge: Stable Plan - Discharge Summary New Discharge Prescriptions: New Ciprofloxacin HCl [Cipro] 500 mg PO BID 12 Days #24 tab Metoprolol Tartrate [Lopressor] 12.5 mg PO BID 30 Days #60 tab Continue lisinopriL [Zestril] 10 mg PO HS Levothyroxine Sodium [Synthroid] 75 mcg PO DAILY Acetaminophen [Tylenol Extra Strength] 1,000 mg PO DAILY Primidone [Mysoline] 100 mg PO HS Citalopram Hydrobromide [CeleXA] 10 mg PO HS Vit C/E/Zn/Coppr/Lutein/Zeaxan [Preservision Areds 2 Softgel] 1 cap PO BID diphenhydrAMINE [Benadryl] 50 mg PO HS Aspirin EC [Ecotrin] 650 mg PO HS Primidone [Mysoline] 250 mg PO DAILY Ergocalciferol (Vitamin D2) [Drisdol (50,000 Iu)] 1,250 mcg PO WEEKLY Discontinued atenoloL [Tenormin] 50 mg PO HS Discharge Medication List Acetaminophen [Tylenol Extra Strength] 1,000 mg PO DAILY 07/02/18 [History] Levothyroxine Sodium [Synthroid] 75 mcg PO DAILY 07/02/18 [History] lisinopriL [Zestril] 10 mg PO HS 07/02/18 [History] Primidone [Mysoline] 100 mg PO HS 07/04/18 [History] Aspirin EC [Ecotrin] 650 mg PO HS 06/26/20 [History] Citalopram Hydrobromide [CeleXA] 10 mg PO HS 06/26/20 [History] Ergocalciferol (Vitamin D2) [Drisdol (50,000 Iu)] 1,250 mcg PO WEEKLY 06/26/20 [History] Primidone [Mysoline] 250 mg PO DAILY 06/26/20 [History] Vit C/E/Zn/Coppr/Lutein/Zeaxan [Preservision Areds 2 Softgel] 1 cap PO BID 06/26/20 [History] diphenhydrAMINE [Benadryl] 50 mg PO HS 06/26/20 [History] Ciprofloxacin HCl [Cipro] 500 mg PO BID 12 Days #24 tab 06/29/20 [Rx] Metoprolol Tartrate [Lopressor] 12.5 mg PO BID 30 Days #60 tab 06/29/20 [Rx] Follow up Appointment(s)/Referral(s): Ke Power MD [Primary Care Provider] - 1-2 days (office will call patient and schedule appt.) Hussain Wetzel MD [STAFF PHYSICIAN] - 1 Week (office will call patient to schedule appt.) Lino Jewell MD [STAFF PHYSICIAN] - 07/10/20 2:45 pm [facility] Visiting Nurse, [NON-STAFF] - 1 Week Activity/Diet/Wound Care/Special Instructions: Activity Limited until follow-up Follow-up with primary care provider upon discharge Follow-up with urology outpatient Continue with antibiotics twice daily for the next 12 days Follow-up with infectious disease Dr. Jewell in the clinic in one week Continue current diet Continue with home care Discharge Disposition: HOME WITH HOME HEALTH SERVICES
--- NOTE | 2020-06-29 15:45 | PN ---
PROGRESS NOTE DATE OF SERVICE: 06/29/2020 REASON FOR FOLLOWUP: Proteus mirabilis bacteremia secondary to complicated UTI. INTERVAL HISTORY: The patient is currently afebrile. The patient is feeling better. Breathing comfortably. Patient denies having any chest pain, shortness of breath or cough. No nausea, no vomiting. No abdominal pain, no diarrhea. PHYSICAL EXAMINATION: Blood pressure 156/93 with a pulse of 73, temperature 98.5. She is 95% on room air. General description is an elderly female up in the chair in no distress. RESPIRATORY SYSTEM: Unlabored breathing, clear to auscultation anteriorly. HEART: S1, S2. Regular rate and rhythm. ABDOMEN: Soft, no tenderness. LABS: White count normal at 8.3, creatinine 0.69. DIAGNOSTIC IMPRESSION AND PLAN: Patient with Proteus mirabilis bacteremia secondary to complicated urinary tract infection, sensitive pathogen, status post cystoscopy and left ureteral stent placement. Plan is to finish therapy with oral Cipro x12 days with close outpatient followup. Continue supportive care. MMODL / IJN: [id number] /
== END 2020-06-29 16:00 | disposition home health service (06) | DRG 854 ==
LOC: EC 13:57 → 5NMEDONC 18:45
PROVIDERS: ADMIT Hospitalist; ATTEND Hospitalist
PROC: 0T778DZ Dilation of Left Ureter with Intraluminal Device, Via Natural or Artificial Opening Endoscopic (ICD-10-PCS; principal; 2020-06-26 20:00)
DX: A41.59 Other Gram-negative sepsis (principal); N13.6 Pyonephrosis; G91.9 Hydrocephalus, unspecified; E03.9 Hypothyroidism, unspecified; E78.5 Hyperlipidemia, unspecified; G25.0 Essential tremor; H91.90 Unspecified hearing loss, unspecified ear; I10 Essential (primary) hypertension; K59.00 Constipation, unspecified; M19.90 Unspecified osteoarthritis, unspecified site; Z79.890 Hormone replacement therapy; Z79.899 Other long term (current) drug therapy; Z80.3 Family history of malignant neoplasm of breast; Z85.3 Personal history of malignant neoplasm of breast; Z87.440 Personal history of urinary (tract) infections; Z90.11 Acquired absence of right breast and nipple; Z90.710 Acquired absence of both cervix and uterus; Z96.651 Presence of right artificial knee joint; Z98.42 Cataract extraction status, left eye; Z98.41 Cataract extraction status, right eye; R26.9 Unspecified abnormalities of gait and mobility; Z20.822 Contact with and (suspected) exposure to COVID-19; B96.4 Proteus (mirabilis) (morganii) as the cause of diseases classified elsewhere; H35.30 Unspecified macular degeneration; Z60.2 Problems related to living alone; Z90.49 Acquired absence of other specified parts of digestive tract; Z91.040 Latex allergy status
CPT/HCPCS: 36415; 71045; 74177; 80048; 80053; 80074; 81001; 83605; 84484; 85025; 85610; 85730; 87040; 87077; 87086; 87186; 87635; 93005; 96360; 96361; 99285

== ENCOUNTER → 2020-07-18 | Outpatient (CLI) | payer MEDICARE, BC ==
[2020-07-18 14:25] LABS: HCT 37.3 % (34.0-46.0); HGB 13.1 gm/dL (11.4-16.0); MCH 33.8 pg (25.0-35.0); MCHC 35.2 g/dL (31.0-37.0); MCV 96.1 fL (80.0-100.0); Mean Platelet Volume 7.3; Platelet Count 223 k/uL (150-450); RBC 3.88 m/uL (3.80-5.40); RDW 12.2 % (11.5-15.5); WBC 4.2 k/uL (3.8-10.6)
[2020-07-18 14:34] LABS: Appearance,Urine Clear (Clear); Bilirubin,Urine Negative (Negative); Blood,Urine Moderate (Negative); Color,Urine Light Yellow; Glucose,Urine (UA) Negative (Negative); Ketones,Urine Negative (Negative); Leukocyte Esterase,Urine Moderate (Negative); Nitrite,Urine Negative (Negative); PH, Urine 6.5 (5.0-8.0); Protein,Urine Trace (Negative); RBC,Urine 46 /hpf (0-5); Specific Gravity,Urine 1.007 (1.001-1.035); Squamous Epithelial Cell,Urine 1 /hpf (0-4); Urobilinogen,Urine <2.0 mg/dL (<2.0); WBC,Urine 4 /hpf (0-5)
[2020-07-18 14:37] LABS: Calcium 9.6 mg/dL (8.4-10.2); Potassium 4.9 mmol/L (3.5-5.1)
== END | disposition home or self-care (01) ==
LOC: LABPAT 13:22
PROVIDERS: ATTEND Urology
DX: Z01.818 Encounter for other preprocedural examination (principal); N20.1 Calculus of ureter; R31.29 Other microscopic hematuria
CPT/HCPCS: 80048; 81001; 85027; 87086

== ENCOUNTER 2020-07-26 12:46 | Day surgery (SDC) | payer MEDICARE, BC ==
--- NOTE | 2020-07-23 14:21 | P.HPIHPCON ---
History of Present Illness H&P Date: 07/23/20 This is an 81-year-old female history of 2 mm left-sided distal ureteral stone, and 8mm nonobstructive renal stone. She presented to the hospital on June 26 with sepsis secondary to her stone, she underwent emergent stent placement at that time. She presents today for definitive stone management. Discussed with her surgical options, discussed the risk and benefit of each approach. She agreed to proceed with left-sided ureteroscopy with holmium laser. Discussed the risk which includes but not limited to bleeding, infection, sepsis, injury to the ureter. Discussed also with her risk from anesthesia. She understood all the risk and agreed to proceed with cystoscopy, left ureteroscopy, holmium laser lithotripsy, stone basketing and possible stent exchange Consent for Procedure: I have explained the operation/procedure to the patient, including the risks, benefits, side effects, alternative therapies (including not receiving the proposed treatment or service), the likelihood of the patient achieving his/her goals, and potential recuperation problems for the procedure/sedation/analgesia, as well as any blood products, if indicated. I also explained to the patient the risks, benefits and side effects of the alternatives, as well as the risks related to not receiving the proposed procedure, care, treatment, or services. Past Medical History Past Medical History: Cancer, Eye Disorder, Hearing Disorder / Deafness, Hyperlipidemia, Hypertension, Liver Disease, Osteoarthritis (OA), Thyroid Disorder Additional Past Medical History / Comment(s): RT BREAST CA W/ SURGERY 1968. HX HEPATITIS 1968. MILD BACK PAIN, MACULAR DEGENERATION. HAND & ARM TREMORS. LOOSES BALANCE -UNSTEADY, SL EDEMA BLE. OCC DIZZINESS IF GETS UP QUICKLY. HX OF UTI'S, RECTOCELE. History of Any Multi-Drug Resistant Organisms: None Reported Past Surgical History: Breast Surgery, Cholecystectomy, Hysterectomy, Joint Replacement Additional Past Surgical History / Comment(s): RT RADICAL MASTECTOMY, CARI CATARACTS, TOTAL RIGHT KNEE. Past Anesthesia/Blood Transfusion Reactions: No Reported Reaction Past Psychological History: No Psychological Hx Reported Smoking Status: Never smoker Past Alcohol Use History: Rare Past Drug Use History: None Reported - Past Family History Mother Family Medical History: Cancer Additional Family Medical History / Comment(s): BREAST CANCER Daughter(s) Family Medical History: Cancer Additional Family Medical History / Comment(s): 2 DAUGHTER'S, BREAST CANCER Medications and Allergies Home Medications Medication Instructions Recorded Confirmed Type Acetaminophen [Tylenol Extra 1,000 mg PO DAILY 07/02/18 06/26/20 History Strength] Levothyroxine Sodium [Synthroid] 75 mcg PO DAILY 07/02/18 06/26/20 History lisinopriL [Zestril] 10 mg PO HS 07/02/18 06/26/20 History Primidone [Mysoline] 100 mg PO HS 07/04/18 06/26/20 History Aspirin EC [Ecotrin] 650 mg PO HS 06/26/20 06/26/20 History Citalopram Hydrobromide [CeleXA] 10 mg PO HS 06/26/20 06/26/20 History Ergocalciferol (Vitamin D2) 1,250 mcg PO WEEKLY 06/26/20 06/26/20 History [Drisdol (50,000 Iu)] Primidone [Mysoline] 250 mg PO DAILY 06/26/20 06/26/20 History Vit C/E/Zn/Coppr/Lutein/Zeaxan 1 cap PO BID 06/26/20 06/26/20 History [Preservision Areds 2 Softgel] diphenhydrAMINE [Benadryl] 50 mg PO HS 06/26/20 06/26/20 History Cefuroxime Axetil [Ceftin] 500 mg PO BID 12 Days #24 tab 06/29/20 Rx Metoprolol Tartrate [Lopressor] 12.5 mg PO BID 30 Days #60 tab 06/29/20 Rx Allergies Allergy/AdvReac Type Severity Reaction Status Date / Time latex Allergy Rash/Hives Verified 07/23/20 14:15 Surgical - Exam - General well developed, no distress, no pain - Eyes PERRL, normal ocular movement - ENT normal nares, normal mucosa - Psychiatric oriented to time, oriented to person, oriented to place Assessment and Plan Assessment: 89-year-old female history of left-sided kidney stones -Or for cystoscopy, left ureteroscopy, holmium laser lithotripsy, stone basketing and possible stent exchange
[2020-07-23 14:34] VITALS: BMI 23.7
[~2020-07-26 12:46] MED LIST changes: -DEXAMETHASONE SOD PHOSPHATE 10 MG/ML 1 ML VIAL IV ONE; +GENTAMICIN 100 MG in SODIUM CHLORIDE 0.9% 100 ML IVPB PRN; -HYDROmorphone 0.5 MG/0.5 ML SYRINGE IVP PRN; -LIDOCAINE 1% 20 ML VIAL (10MG/ML) FOR IV START INTRADERMA PRN; -SCOPOLAMINE 1.5MG/72HR PATCH TRANSDERM ONE; +fentaNYL (PF) 50 MCG/ML 2 ML AMP IV PRN
--- NOTE | 2020-07-26 13:33 | XR ---
EXAMINATION TYPE: XR KUB DATE OF EXAM: 07/26/2020 1:11 PM CLINICAL HISTORY: Left-sided kidney stones. TECHNIQUE: Two supine KUB images of the abdomen are obtained. COMPARISON: CT abdomen and pelvis June 26, 2020. FINDINGS: There is persistent 11 mm left renal calculus mid pole level that superior L4 level. There is new double-J left ureter stent. Scattered bilateral pelvic phleboliths redemonstrated. Overall nonobstructive bowel gas pattern. Underlying S-shaped scoliosis with multilevel spurring and disc space narrowing. Cholecystectomy clips redemonstrated. IMPRESSION: As above.
[2020-07-26 13:41] VITALS: TEMP 97.5
[2020-07-26] MEDS ORDERED: ONDANSETRON 4 MG/2 ML VIAL IVP ONE (13:50)
[2020-07-26] MEDS ORDERED: DEXAMETHASONE SOD PHOSPHATE 4 MG/ML 1 ML VIAL IVP ONE (13:50)
[2020-07-26] MEDS ORDERED: LACTATED RINGERS 1,000 ML IV ONE (13:50)
[2020-07-26] MEDS ORDERED: LIDOCAINE 1% INJ 10MG/ML (20 ML MDV) ONE (14:38)
[2020-07-26] MEDS ORDERED: PROPOFOL 10 MG/ML 20 ML VIAL IV ONE (14:38)
[2020-07-26] MEDS ORDERED: fentaNYL (PF) 50 MCG/ML 2 ML AMP ONE (14:38)
[2020-07-26] MEDS ORDERED: PHENYLEPHRINE-0.9% NACL SYG 1,000 MCG/10 ML SYRINGE ONE (14:38)
[2020-07-26] MEDS ORDERED: IOPAMIDOL-370 50ML BTL MISCELLANE ONE ×2 (15:11)
--- NOTE | 2020-07-26 16:13 | P.OP ---
Date of Procedure: 07/26/20 Preoperative Diagnosis: Left renal calculi Postoperative Diagnosis: Same Procedure(s) Performed: Cystoscopy, left ureteroscopy, holmium laser lithotripsy, stone basketing and stent removal Implants: None Anesthesia: GABY Surgeon: Hussain Wetzel Estimated Blood Loss (ml): 1 Pathology: other (Left renal calculi) Condition: stable Disposition: PACU Indications for Procedure: This is an 81-year-old female history of 2 mm left-sided distal ureteral stone, and 8mm nonobstructive renal stone. She presented to the hospital on June 26 with sepsis secondary to her stone, she underwent emergent stent placement at that time. She presents today for definitive stone management. Discussed with her surgical options, discussed the risk and benefit of each approach. She agreed to proceed with left-sided ureteroscopy with holmium laser. Discussed the risk which includes but not limited to bleeding, infection, sepsis, injury to the ureter. Discussed also with her risk from anesthesia. She understood all the risk and agreed to proceed with cystoscopy, left ureteroscopy, holmium laser lithotripsy, stone basketing and possible stent exchange Operative Findings: Large stone within the left mid calyx Description of Procedure: Patient was brought to the operating room, general anesthesia was induced. She was prepped and draped in sterile fashion and placed in dorsal lithotomy position. Cystoscopy fitted with a 21-Setswana sheath was inserted per urethra, cystoscopy was performed showed no abnormality within the bladder. Attention was then carried to the left ureteral orifice, the stent was grasped and removed using a stent grasper. Next a semirigid ureteroscope was advanced up the left ureteral orifice and all the way up to the UPJ, no stones was visualized. Pullback ureteroscopy was performed showed no evidence of any stones within the ureter or injury to the ureter. As the ureteroscope was withdrawn and a sensor wire was advanced through. Next a 1214 Setswana access sheath was passed over the wire under fluoroscopy into the proximal ureter. Next the flexible ureteroscope was inserted through the access sheath, renoscopy was performed showed a large stone within the mid calyx. Using the holmium laser the stone was dusted into small fragments, sizable fragments were removed using the stone basket. Repeat renoscopy showed no injury to the kidney or any sizable fragments. Pullback ureteroscopy showed no evidence of injury to the ureter or any ureteral fragments. The bladder was emptied at the end of the case. The patient thought the procedure well was taken to PACU in stable condition
[2020-07-26] MEDS ORDERED: hydrALAZINE HCL 20 MG/ML 1 ML VIAL IVP ONE (16:18)
--- NOTE | 2020-07-26 16:28 | FL ---
Fluoroscopy HISTORY: Cystoscopy with lithotripsy 8 seconds fluoroscopy time supplied to the referring clinician. 1 intraoperative C-arm images docume nt the procedure. See dictated report from urology.
[2020-07-26 16:32] VITALS: RESP 16
[2020-07-26 17:38] VITALS: BP 175/80; PULSE 85
== END 2020-07-26 17:46 | disposition home or self-care (01) ==
LOC: OR 12:46
PROVIDERS: ATTEND Urology
DX: N20.0 Calculus of kidney (principal); E78.5 Hyperlipidemia, unspecified; I10 Essential (primary) hypertension; K76.9 Liver disease, unspecified; H35.30 Unspecified macular degeneration; E03.9 Hypothyroidism, unspecified; H91.90 Unspecified hearing loss, unspecified ear; Z85.3 Personal history of malignant neoplasm of breast; M19.90 Unspecified osteoarthritis, unspecified site; Z90.89 Acquired absence of other organs; R25.1 Tremor, unspecified; R26.81 Unsteadiness on feet; R60.0 Localized edema; Z87.440 Personal history of urinary (tract) infections; Z90.49 Acquired absence of other specified parts of digestive tract; Z90.710 Acquired absence of both cervix and uterus; Z98.42 Cataract extraction status, left eye; Z98.41 Cataract extraction status, right eye; Z96.651 Presence of right artificial knee joint; Z90.11 Acquired absence of right breast and nipple; Z80.3 Family history of malignant neoplasm of breast; Z79.82 Long term (current) use of aspirin; Z79.890 Hormone replacement therapy; Z79.899 Other long term (current) drug therapy; Z91.040 Latex allergy status; Z88.1 Allergy status to other antibiotic agents
CPT/HCPCS: 82365; 74018; 52353; C1894; C1769; J0360; J1100; J0690; J2405; J2001; J3010; J1580; J2370; J2704; Q9967